=== PATIENT | female | born 1960 | race Caucasian/White ===

== ENCOUNTER 2025-02-22 15:00 | Emergency (ER) | payer OTHER, SELFPAY ==
--- OUTSIDE RECORDS SUMMARY | 2025-02-22 15:05 | XMS_ITS | Data Portability ---
Author Organization [facility] Address [address] [place] [address] Care Team Providers Care Wildlife Refuge Manager Name Role Phone KEENA HAMEED Primary Care Provider Unavailabl e Assessment No assessment recorded. Plan of Treatment Reminders Order Date Submit Date Provider Last Modified By Organization Details Last Modified Time Details Appointments ACUTE VISIT 2024 02:20P M WALK-IN Not available Not available Not available RECHECK 15 2024 10:15A M Keena Hameed MD Not available Not available Not available Lab CMP, serum or plasma 2023 024 [facility], [address] [facility], [address], [place], [address], 10/16/2023 13:54:49 CBC 2023 024 [facility], [address] [facility], [address], [place], [address], 10/16/2023 12:51:59 BRIAN + rf (antinucl ear antibodie s + rheumatoi d factor), quantitat russell, serum 2023 024 [facility], [address] [place] [address], [address] [facility] [address], 10/30/2023 07:35:35 C-reactiv e protein, quantitat russell, serum or plasma 2023 024 [facility], [address] [place] [address] 248, [address], [place], [address], 10/23/2023 19:36:10 ESR (erythroc yte sedimenta tion rate), blood 2023 024 [facility] ([facility]), [address] [place] [address], [phone], 10/17/2023 11:07:53 Referral None recorded. Procedures None recorded. Surgeries None recorded. Imaging XR, thoracic spine, 3 view 2023 024 [facility] ([facility]), [address] [place] [address], [phone], 04/13/2024 08:47:31 Medication Orders fluticaso ne propionat e 50 mcg/actua tion nasal spray,ten pension 2024 025 [facility], [address] [place] [address], [address], 10/07/2024 17:09:57 alprazola m 0.5 mg tablet 2024 025 [facility], [address] [place] [address], [address], 11/27/2024 13:09:40 Patient TargetsNo targets recorded. Patient InstructionsNo instructions recorded. Reason for Referral None Reported. Results Created Date Observation Date Name Description Value Unit Range Abnormal Flag Note LastModifiedBy Organization Detail LastModifiedTime 01/17/2001/16/2025 COLOG UARD cologuard result reportable Sample Could Not Be Proces sed n/a The Colog uard (TM) test was assig romi to this speci men. An empty colle ction kit was recei garrison in the labor atory . The patie nt will be conta cted to initi ate a new sampl e colle ction . Not Available [employer] [address], [place], [address], 01/16/2025 11:31:22 10/16/19 24 10/16/2023 CBC WBC 5.2 x10 4.0-10 .5 Not Available [facility] [address] [facility] [address], [place], [address], 10/16/2023 12:51:59 10/16/19 24 10/16/2023 CBC RBC 4.30 x10 3.50-5 .50 Not Available [facility] [address] [facility] 1, [place], [address], 10/16/2023 12:51:59 10/16/19 24 10/16/2023 CBC HGB 13.6 g/dL 12.0-1 6.0 Not Available [facility] [address] [facility] [address] [facility] [address], [place], [address], 10/16/2023 12:51:59 10/16/19 24 10/16/2023 CBC HCT 40.2 % 37.0-4 7.0 Not Available [facility] [address] [facility] [address] [facility] [address], [place], [address], 10/16/2023 12:51:59 10/16/19 24 10/16/2023 CBC MCV 93.6 fL 80.0-9 9.9 Not Available [facility] [address] [facility] [address] [facility] 1, [place], [address], 10/16/2023 12:51:59 10/16/19 24 10/16/2023 CBC MCH 31.5 pg 27.0-3 2.0 Not Available [facility] [address] [facility] [address] [address], [place], [address], 10/16/2023 12:51:59 10/16/19 24 10/16/2023 CBC MCHC 33.7 g/dL 32.0-3 6.0 Not Available [facility] [address] [facility] [address] [address], [place], [address], 10/16/2023 12:51:59 10/16/19 24 10/16/2023 CBC RDW 13.5 % 11.5-1 4.5 Not Available [facility] [address] [facility] [address] [facility], [place], [address], 10/16/2023 12:51:59 10/16/19 24 10/16/2023 CBC plt 316.8 x10 140.0- 451.0 Not Available [facility] [address] [facility] [address] [facility], [place], [address], 10/16/2023 12:51:59 10/16/19 24 10/16/2023 CBC lymphocytes % 40.8 % 20.0-5 0.0 Not Available [facility] [address] [facility] [address] [address], [place], [address], 10/16/2023 12:51:59 10/16/19 24 10/16/2023 CBC granulcytes % 51.6 % 30.0-7 0.0 Not Available [facility] [address] [facility] [address] [address], [place], [address], 10/16/2023 12:51:59 10/16/19 24 10/16/2023 CBC monocytes % 5.8 % 2.0-10 .0 Not Available [facility] [address] [place] [address] [facility], [place], [address], 10/16/2023 12:51:59 10/16/19 24 10/16/2023 CBC granulcytes# 2.7 x10 Not Anahy ilable [facility] [address] [place] [address] [facility], [place], [address], 10/16/2023 12:51:59 10/16/19 24 10/16/2023 CBC lymphocytes # 2.1 x10 Not Available [facility] [address] [facility], [place], [address], 10/16/2023 12:51:59 10/16/19 24 10/16/2023 CBC monocytes # 0.3 x10 Not Avai lable [facility] [address] [facility] [address] [facility] 1, [place], [address], 10/16/2023 12:51:59 10/16/19 24 10/16/2023 CMP (FEMA LE) glucose 101.0 mg/dL 60.0-9 9.0 high Not Available [facility] [address] [facility], [place], [address], 10/16/2023 13:54:49 10/16/19 24 10/16/2023 CMP (FEMA LE) BUN (blood urea nitrogen) 13.0 mg/dL 10.0-2 6.0 Not Available [facility] [address] [place] [facility], [place], [address], 10/16/2023 13:54:49 10/16/19 24 10/16/2023 CMP (FEMA LE) creatinine (serum) 0.7 mg/dL 0.4-1. 5 Not Available [facility] [address] [facility], [place], [address], 10/16/2023 13:54:49 10/16/19 24 10/16/2023 CMP (FEMA LE) BUN/creatini ne ratio 18.06 ratio Not Available [facility] [address] [facility], [place], [address], 10/16/2023 13:54:49 10/16/19 24 10/16/2023 CMP (FEMA LE) eGFR calculated 87.8 Not Available [facility] [address] [facility], [place], [address], 10/16/2023 13:54:49 10/16/19 24 10/16/2023 CMP (FEMA LE) total protein 8.0 g/dL 6.0-8. 5 Not Available [facility] [address] [facility], [place], [address], 10/16/2023 13:54:49 10/16/19 24 10/16/2023 CMP (FEMA LE) total bilirubin 0.8 mg/dL 0.2-1. 3 Not Available [facility] [address] [facility], [place], [address], 10/16/2023 13:54:49 10/16/19 24 10/16/2023 CMP (FEMA LE) albumin 4.3 g/dL 3.5-5. 5 Not Available [facility] [address] [facility] 1, [place], [address], 10/16/2023 13:54:49 10/16/19 24 10/16/2023 CMP (FEMA LE) globulin 3.7 calc Not Available [facility] [address] [facility], [place], [address], 10/16/2023 13:54:49 10/16/19 24 10/16/2023 CMP (FEMA LE) AST (SGOT) 25.0 U/L 0.0-46 .0 Not Available [facility] [address] [facility] 1, [place], [address], 10/16/2023 13:54:49 10/16/19 24 10/16/2023 CMP (FEMA LE) altv (SGPT) 19.0 U/L 13.0-6 9.0 normal Not Available [facility] [address] [facility], [place], [address], 10/16/2023 13:54:49 10/16/19 24 10/16/2023 CMP (FEMA LE) A/G ratio 1.2 ratio Not Available [facility] [address] [facility] [address], [place], [address], 10/16/2023 13:54:49 10/16/19 24 10/16/2023 CMP (FEMA LE) ALP phos 96.0 U/L 30.0-1 40.0 normal Not Available [facility] [address] [facility] [address], [place], [address], 10/16/2023 13:54:49 10/16/19 24 10/16/2023 CMP (FEMA LE) calcium 9.8 mg/dL 8.4-10 .5 Not Available [facility] [address] [facility] [address], [place], [address], 10/16/2023 13:54:49 10/16/19 24 10/16/2023 CMP (FEMA LE) sodium 140.0 mmol/ L 136.0- 145.0 Not Available [facility] [address] [facility] [address], [place], [address], 10/16/2023 13:54:49 10/16/19 24 10/16/2023 CMP (FEMA LE) potassium 4.2 mmol/ L 3.5-5. 1 Not Available [facility] [address] [facility] [address], [place], [address], 10/16/2023 13:54:49 10/16/19 24 10/16/2023 CMP (FEMA LE) chloride 105.0 mmol/ L 98.0-1 10.0 normal Not Available [facility] [address] [place] [facility], [place], [address], 10/16/2023 13:54:49 10/16/19 24 10/16/2023 CMP (FEMA LE) C02 31.0 mmol/ L 22.0-3 1.0 Not Available [facility] [address] [place] [address], [place], [address], 10/16/2023 13:54:49 10/16/19 24 10/16/2023 CMP (FEMA LE) anion gap 4.0 calc Not Available [facility] [address] [place] [address], [place], [address], 10/16/2023 13:54:49 10/16/19 24 10/16/2023 CMP (FEMA LE) osmolality 289.4 calc Not Available [facility] [address], [place], [address], 10/16/2023 13:54:49 10/16/19 24 10/23/2023 BRIAN,I FA, [place] AND RHEUM ATOID ARTHR ITIS PANEL 2, WITH REFLE XES BRIAN screen, ifa POSITI VE negati ve abnormal BRIAN IFA is a first line scree n for detec ting the prese nce of up to appro ximat myron 150 autoa ntibo dies in vario us autoi mmune disea ses. A posit russell BRIAN IFA resul t is sugge stive of autoi mmune disea se and refle xes to titer , pierre [place] and the 3 tiere d Multi plex 11 Antib hector [place]. Testi ng in the [place] stops at the first posit russell resul t, and does not precl ude addit ional posit russell resul ts. [facility] labor atory testi ng may be consi dered if clini nanette indic ated. For addit ional infor tomas styles e refer to http: //[facility] leonel allan.Que stDia gnost ics.c om/fa q/FAQ 177 (This link is being provi ded for infor roberto garner/ educa rupert l purpo ses only. ) Not Available [facility] [address], [place], [address], 10/23/2023 19:36:06 10/16/19 24 10/23/2023 BRIAN,I FA, [place] AND RHEUM ATOID ARTHR ITIS PANEL 2, WITH REFLE XES rheumatoid factor <10 IU/mL <14 normal Not Available [address] [place], [address], 10/23/2023 19:36:06 10/16/19 24 10/23/2023 BRIAN,I FA, CAS[place] AND RHEUM ATOID ARTHR ITIS PANEL 2, WITH REFLE XES cyclic citrullinate d peptide (ccp) Ab (IgG) <16 units normal Refer ence Range Negat russell: <20 Weak Posit russell: 20-39 Moder ate Posit russell: 40-59 Stron g Posit russell: >59 Not Available [address] [address] [place], [address], 10/23/2023 19:36:06 10/16/19 24 10/23/2023 BRIAN,I FA, CAS[place] DE AND RHEUM ATOID ARTHR ITIS PANEL 2, WITH REFLE XES mutated citrullinate d vimentin (MCV) Ab <20 U/mL <20 Anti- mutat ed citru llina catrachita vimen tin antib hector may be used as a secon d-kandi e timmye r of rheum atoid arthr itis, in addit ion to rheum atoid facto r and anti- cycli c citru llina catrachita pepti de (CCP) . Not Available [address] [address] [place], [address], 10/23/2023 19:36:06 10/16/19 24 10/23/2023 ANTIN UCLEA R ANTIB ODIES TITER AND PATTE RN BRIAN titer 1:80 titer high A low level BRIAN titer may be prese nt in pre-c linic al autoi mmune disea ses and airam l indiv idual s. Refer ence Range <1:40 Negat russell 1:40- 1:80 Low Antib hector Level >1:80 [place] catrachita Antib hector Level Not Available [address] [address] [place], [address], 10/23/2023 19:36:07 10/16/19 24 10/23/2023 ANTIN UCLEA R ANTIB ODIES TITER AND PATTE RN BRIAN pattern Cytopl asmic abnormal The prese nce of cytop lasmi c fluor escen ce was noted on the HEp-2 slide . Other react iviti es (e.g. , anti- mitoc hondr ial antib odies or anti- elías h muscl e antib odies ) may be respo nsibl e for this fluor escen ce. The clini shahram signi fican ce of this findi ng is [facility]. Clini shahram corre latio n is recom aries d. AC-15 to AC-23 : Cytop lasmi c Inter natio nal Conse nsus on BRIAN Patte rns (http s://d oi.or g/10. 1515/ [facility]- 2017- 0052) Not Available [address] [address] [place], [address], 10/23/2023 19:36:07 10/16/19 24 10/23/2023 TIER 1 DNA (ds) antibody <1 IU/mL normal IU/mL Inter preta tion < or = 4 Negat russell 5-9 Indet ermin ate > or = 10 Posit russell Not Available [address] [address] [place], [address], 10/23/2023 19:36:07 10/16/19 24 10/23/2023 TIER 1 sm antibody <1.0 NEG ai <1.0 neg normal Not Available [address] [address] [place], [address], 10/23/2023 19:36:07 10/16/19 24 10/23/2023 TIER 1 sm/urgent care technician antibody <1.0 NEG ai <1.0 neg normal Not Available [address] [address] [place], [address], 10/23/2023 19:36:07 10/16/19 24 10/23/2023 TIER 1 urgent care technician antibody <1.0 NEG ai <1.0 neg normal Not Available [address] [place], [address], 10/23/2023 19:36:07 10/16/19 24 10/23/2023 TIER 1 chromatin (nucleosomal ) antibody <1.0 NEG ai <1.0 neg normal Not Available [address] [address] [place], [address], 10/23/2023 19:36:07 10/16/19 24 10/23/2023 TIER 2 sjogren's antibody (ss-A) <1.0 NEG ai <1.0 neg normal Not Available [address], [address], 10/23/2023 19:36:08 10/16/19 24 10/23/2023 TIER 2 sjogren's antibody (ss-B) <1.0 NEG ai <1.0 neg normal Not Available [address] [address] [place], [address], 10/23/2023 19:36:08 10/16/19 24 10/23/2023 TIER 2 scl-70 antibody <1.0 NEG ai <1.0 neg normal Not Available [address] [address] [place], [address], 10/23/2023 19:36:08 10/16/19 24 10/23/2023 TIER 2 lizette-1 antibody <1.0 NEG ai <1.0 neg normal Not Available [address] [address] [place], [address], 10/23/2023 19:36:08 10/16/19 24 10/23/2023 TIER 3 centromere B antibody <1.0 NEG ai <1.0 neg normal Not Available [address] [address] [place], [address], 10/23/2023 19:36:09 10/16/19 24 10/23/2023 TIER 3 ribosomal P antibody <1.0 NEG ai <1.0 neg normal The [place] does not rule out autoi mmune disea se nuzhat cteri zed by other autoa ntibo dy speci ficit ies such as rheum atoid arthr itis, autoi mmune hepat itis, prima ry bilia ry cirrh osis, autoi mmune thyro iditi s, [place] on's disea se, perni cious anemi a, autoi mmune neuro pathi es, vascu litis , sandy c disea se and bullo us disea se. Pleas e conta ct your local [facility] at[facility] if you are inter ested in addit ional testi ng. Not Available [facility] [address] [address] [place], [address], 10/23/2023 19:36:09 10/16/19 24 10/23/2023 INTER PRETA TION interpretati on All three negat russell tiers indic ate the absen ce of detec table antib odies to compo nent vida pooja consi sting of doubl e stran ded DNA (dsDN A), chrom atin, ribon ucleo prote in (FORESTRY AID) , Martínez /FORESTRY AID (Sm/R BRAND COORDINATOR), Martínez (Sm), SS-A, SS-B, Lizette-1, Scl-7 0, centr omere B and ribos omal P. A negat russell resul t shoul d be inter prete d in the brittney xt of the clini shahram and labor atory findi ngs. Not Available [facility] [address] [address] [address] , [place], [address], 10/23/2023 19:36:09 10/16/19 24 10/23/2023 C-YUMIKO CTIVE PROTE IN C-reactive protein 5.5 mg/L <8.0 normal Not Available [facility] [address] [address] [place], [address], 10/23/2023 19:36:10 10/17/19 24 10/17/2023 ESR (eryt hrocy te sedim entat ion rate) , blood SedRate 21 Not Available [facility] [address] [place], [address], 10/16/2023 11:59:44 04/13/20 24 04/10/2024 XR, thora cic spine , 3 view No observ ation record ed. [email or web address] [facility] [address] [place], [address], 04/13/2024 14:53:00 Result Notes None recorded. Problems Name Problem SNOMED Code Status Onset Date Resolution Date Notes Provider Name and Address Organization Details Recorded Time Irritabl e bowel syndrome 61813709 Active 2022 IBS; 06/18/19 8:56AM by Kaya Nolan, Office Visit; Promoted ; acuity set as *; JESUS hannon [facility] 5 16:51:20 Urticari a 049038863 Active 2022 Urticari a; 06/18/19 23 8:56AM by Kaya Nolan, Office Visit; Promoted ; acuity set as *; [facility]US hannon [facility] 5 16:51:20 Bacteria l intestin al infectio us disease 648762636 Completed 202209/30/2024 Helicoba cter Pylori Infectio n; 2006.; 06/18/19 23 8:56AM by Kaya Nolan, Office Visit; Promoted ; acuity set as *; [facility] hannon [facility] 5 16:51:30 Generali zed anxiety disorder 92103232 Active [address] [facility] 5 16:51:20 Thoracic back pain 441888800 Active [address] [facility] 5 16:51:20 Chronic osteoart hritis 22782103 Active 2023 JESUS hannon, [facility] 5 16:51:20 Pain of multiple joints 66563617 Active 2023 JESUS hannon, [facility] 5 16:51:20 Compress ion fracture of thoracic vertebra 82637962836 04 Completed 202309/30/2024 JESUS hannon, [facility] 5 16:51:30 Allergic rhinitis 17670214 Active 2024 Keena Hameed MD [address] [place] [address], [address], [facility] 17:14:27 Problem Notes None recorded. Medical Equipment None Reported. Allergies Allergen ID Allergen Name Allergen Category Reaction Reaction Severity Criticality Documentation Date Start Date Code Code System Note Provider Name and Address Organization Details Recorded Time 86989 cyclobenz aprine hydrochlo ride medicatio n Not available Not available Not available 12/15/2022 89118 RxNorm Comme nt: Recor ded 06/18 8:56A M by Brand edin Sageri s, Offic e Visit ; Promo catrachita; Signi ficoxana ce: *; ; [facility] 4 11:36:48 85646 escitalop [place] Not available Not available Not available Not available 12/15/2022 03956 8 RxNorm Comme nt: Recor ded 06/18 8:56A M by Brand i Norri s, Offic e Visit ; Promo catrachita; Signi ficoxana ce: *; ; [facility]ESUS hannon [facility] 4 11:36:49 70208 acetamino phen / oxycodone medicatio n Not available Not available Not available 12/15/2022 33282 3 RxNorm Comme nt: Recor ded 06/18 8:56A M by Mickey Mchugh s, Offic e Visit ; Elba domínguez; Ubaldo valenzuela ce: *; ; [facility] 4 11:36:50 Medications Name Sig Start Date Stop Date Status Note LastModified by Organization Details LastModified Time cetirizin e 5 mg-pseudo ephedrine ER 120 mg tablet,ex tended release,1 2hr TAKE ONE TABLET BY MOUTH TWICE DAILY NEEDED 2024 active Not Available Not Available Not Avai lable celecoxib 200 mg capsule take 1 capsule BY MOUTH EVERY DAY FOR arthriti s. STOP ibuprofe n 10/15 completed Not Available Not Available Not Available methocarb estefanía 500 mg tablet TAKE 1 TABLET BY MOUTH FOUR TIMES DAILY NEEDED 10/15 completed Not Available Not Available Not Available ibuprofen 800 mg tablet TAKE 1 TABLET BY MOUTH TWO TIMES DAILY NEEDED FOR PAIN active Not Available Not Available No t Available fluconazo le 150 mg tablet TAKE 1 TABLET BY MOUTH DAILY 10/15 completed Not Available Not Available Not Available fluoroura cil 5 % topical cream apply thin layer TO concerni ng lesions TWICE DAILY FOR 14 DAYS 03/26 completed Not Available Not Available Not Available sulfameth oxazole 800 mg-trimet hoprim 160 mg tablet TAKE ONE TABLET BY MOUTH TWICE DAILY 03/26 completed Not Available Not Available Not Available alprazola m 0.5 mg tablet TAKE 1 TABLET BY MOUTH THREE TIMES DAILY NEEDED *MUST LAST 30 DAYS* 2024 active Not Available Not Available Not Avai lable estradiol 1 mg tablet TAKE 1 TABLET BY MOUTH EVERY DAY 2024 active Not Available Not Available Not Avai lable omeprazol e 20 mg capsule,d elayed release TAKE 1 CAPSULE BY MOUTH EVERY DAY active Not Available Not Available No t Available levofloxa ruiz 500 mg tablet TAKE 1 TABLET BY MOUTH every 24 hours FOR uti for 7 days 10/15 completed Not Available Not Available Not Available fluticaso ne propionat e 50 mcg/actua tion nasal spray,ten pension [place] 2 sprays every day by intranas al route. 2024 active Not Available Not Available Not Avai lable neomycin 3.5 mg/g-poly myxin B 10,000 unit/g-de xameth 0.1 % eye oint apply a small amount ON eyelid THREE TIMES DAILY. start DAY of procedur e and continue FOR TWO weeks 03/26 completed Not Available Not Available Not Available neomycin- polymyxin -hydrocor t 3.5 mg-10,000 unit/mL-1 % ear drops,ten p adminsit er TWO drops into THE right ear canal THREE TIMES DAILY FOR SEVEN DAYS 08/02 completed Not Available Not Available Not Available nitrofura ntoin monohydra te/macroc rystals 100 mg capsule TAKE 1 CAPSULE BY MOUTH EVERY 12 HOURS FOR 5 DAYS 08/12 completed Not Available Not Available Not Available tizanidin e 2 mg capsule two times daily, as needed 03/26 completed Recorded 02/15/20 22 10:01AM by Pastora Starr LPN, Office Visit; Refill Quantity : 40; Capsule; Not Available Not Available Not Available hydroxyzi ne HCl Q 4 hr prn hives 09/30 completed Recorded 02/15/20 22 10:01AM by Pastora Starr LPN, Office Visit; Refill Quantity : 60; Tablet; Not Available Not Available Not Available fluconazo le once for yeast infectio n 03/26 completed Recorded 06/18/19 23 9:36AM by Keena Hameed MD, Office Visit; Refill Quantity : 1; Tablet; Not Available Not Available Not Available furosemid e as needed 03/26 completed Recorded 02/15/20 22 10:01AM by Pastora Starr LPN, Office Visit; Refill Quantity : 20; Tablet; Not Available Not Available Not Available alprazola m three times daily, as needed 03/26 completed each RX must last 30 days.; Recorded 05/14/20 22 10:07AM by Keena Hameed MD, Refill Request; Refill Quantity : 90; Tablet; Not Available Not Available Not Available cetirizin e-pseudoe phedrine two times daily, as needed 03/26 completed Recorded 06/29/19 4:35PM by Rome Malone MD, Refill Request; Refill Quantity : 40; Tablet; Not Available Not Available Not Available Vitals Date Recorded Body height Body mass index (BMI) Body weight Heart rate Systolic And Diastolic Provider Name and Address Organization Details Last Updated DateTime 09/30/2024 168.91 cm 24.2 kg/m2 18882.04 g 64 /min 118/63 mm[Hg] [facility]US [facility] 5 16:56:13 Date Recorded Body height Body mass index (BMI) Body weight Heart rate Systolic And Diastolic Provider Name and Address Organization Details Last Updated DateTime 10/16/2023 168.91 cm 24.2 kg/m2 07709.04 g 68 /min 100/60 mm[Hg] JESUS [facility] 4 11:34:46 Date Recorded Body mass index (BMI) Body weight Oxygen saturation Oxygen saturation in Arterial blood by Pulse oximetry Heart rate Respiratory rate Body temperature Systolic And Diastolic Provider Name and Address Organization Details Last Updated DateTime 5 24.6 kg/m2 34868.8 2 g 97 % 97 % 76 /min 18 /min 97 [degF] 122/70 mm[Hg] PASTORA STARR [facility] 13:45:43 Date Recorded Body height Provider Name an d Address Organization Details Last Updated DateTime 10/28/[address]24 [address] [facility] [facility] 10/28/2024 13:41:33 Date Recorded Body height Body mass index (BMI) Body weight Body temperature Oxygen saturation Oxygen saturation in Arterial blood by Pulse oximetry Heart rate Systolic And Diastolic Provider Name and Address Organization Details Last Updated DateTime 168.91 cm 24.6 kg/m2 11359.8 2 g 97.9 [degF] 94 % 94 % 69 /min 180/88 mm[Hg] Carmen Aceves [facility] 5 15:38:53 Date Recorded Body height Body mass index (BMI) Body weight Oxygen saturation Oxygen saturation in Arterial blood by Pulse oximetry Heart rate Systolic And Diastolic Provider Name and Address Organization Details Last Updated DateTime 4 168.91 cm 23.8 kg/m2 17226.8 6 g 97 % 97 % 67 /min 116/70 mm[Hg] KAYA NOLAN [facility] L.LFadi[facility] 4 14:50:33 Social History Question Answer Notes LastModified by Organizat ion Details LastModified Time Tobacco Smoking Status Former Smoker JESUS BETHEA riddhi [facility] 03/26/2023 11:41:15 What Was The Date Of Your Most Recent Tobacco Screening? 02/22/2025 [email or web address] Information not available 02/22/2025 Sex: Unknown Functional Status Question Answer Note LastModified by Organization D etails LastModified Time What is your level of alcohol consumption? None [email or web address] Information not available 03/26/2023 Mental Status None recorded. Family History Relationship Description Onset Age of this Age Resolved Age Notes LastModified by Organization Details LastModified Time Mother Diabetes mellitus [email or web address] Not available 10/15 11:38:17 Medical History No medical history recorded. Gynecological HistoryNo gynecological history recorded. Obstetrics History GPAL:G 0 P 0 0 0 0 Immunizations Vaccine Type Date Status Note Provider Nam e and Address Organization Details Recorded Time Tdap 10/22/2007 completed Not Available [employer] 12/15/2022 02:38:59 Tdap 04/05/2023 completed JILL DOWNEY PA-C [address] [place] [address], [phone], [facility], L.LFadiCFadi 04/05/2023 17:17:28 Past Encounters Encounter ID Performer Location Encounter Start Date Encounter Closed Date Diagnosis/Indication Diagnosis SNOMED-CT Code Diagnosis ICD10 Code Diagnosis IMO Codes Diagnosis Note [id number] Keena Hameed MD [facility] ([facility]) [address] [place] [address] 03/26/2023 11:02:08 03/26/2023 15:32:09 Irritable bowel syndrome 50452591 K58.9 stable at this time Generalize d anxiety disorder 56821895 F41.1 stable. Active or passive immunization 613305575 Z23 Adult heal th examination 927089638 Z00.00 Thoracic back pain 61545 8004 M54.6 [id number] JILL DOWNEY PA-C [facility] ([facility]) [address] [place] [phone] 04/05/2023 10:25:47 04/05/2023 18:41:52 Pain of left hand 1230952040 41226 M79.642 no fx seen.able to return to work. Laceration of finger of left hand 8778641838 0438282 S61.227A see exam. watch for infection. Clean daily and keep covered. [id number] MARA MEDINA [facility] ([facility]) [address] [place] [phone] 08/03/2023 13:56:15 08/03/2023 15:12:05 Acute urinary tract infection 177536611 N39.0 [id number] Keena Hameed MD [facility] ([facility]) [address] [place] [phone] 08/13/2023 11:44:22 08/13/2023 17:40:05 Dysuria 40188764 R30.0 Chronic osteoarthritis 22319372 M19.90 [id number] Keena Hameed MD [facility] ([facility]) [address] [place] [phone] 10/16/2023 10:41:26 10/16/2023 13:05:41 Generalized anxiety disorder 14810295 F41.1 stable. Irritable bowel syndrome 04361411 K58.9 stable at this time Thoracic back pain 99238 8004 M54.6 stable Pain of mu ltiple joints 95302166 M25.50 Adult heal th examination 940315237 Z00.00 [id number] Keena Hameed MD [facility] ([facility]) [address] [place] [phone] 04/10/2024 14:39:14 04/10/2024 15:51:18 Urticaria 865390622 L50.9 Pain of mu ltiple joints 66171000 M25.50 Rheumatolo gist appt. in April in April. Compressio n fracture of thoracic vertebra 8539359976 104 M48.54XD history of T8 compressio n fracture with continued pain. [id number] Keena Hameed MD [facility] ([facility]) [address] [place] [phone] 09/30/2024 15:53:13 10/03/2024 06:55:51 Urticaria 309194133 L50.9 Generalize d anxiety disorder 82144619 F41.1 stable. Thoracic back pain 66523 8004 M54.6 stable Pain of mu ltiple joints 38236172 M25.50 stable, Rheumatolo gist felt false positive BRIAN Allergic rhinitis 639562 04 J30.9 1794148 [id number] JILL DOWNEY PA-C [facility] ([facility]) [address] [place] [phone] 10/28/2024 13:39:14 10/28/2024 15:22:06 Insect sting 362059960 T63.481A W57.XXXA 12716405 no evidence of infection. large amnt of bruising associated with in.Low suspicion of DVT. Varicose v eins of lower extremity 15328164 I83.666 1420689 mild edema L>R [id number] MARA MEDINA [facility] ([facility]) [address] [place] [phone] 02/22/2025 15:28:39 02/22/2025 16:05:03 Epigastric pain 40894249 R10.13 [id number] Sent to ER for further evaluation and treatment. Report to ER staff Violette by Carmen MEJÍA. Patient wishes to go to ER per private vehicle. Health Concerns Section Related Observation LastModified by Organization Detai ls LastModified Time None Recorded Concern Status LastModified by Organization Details LastModified Time None Recorded Advance Directives Directive None Recorded Payers Insurance Date Sequence Insurance Name Policy Number Policy Duran Covered Member ID Duran Member ID Guarantor Name 04/10/2024 JUAN R BECK [id number] Betzy Breen 10/28/2024 1 MADINA [id number] Betzy Breen [id number] 1 Betzy Breen Notes Date Note Type Note Provider Name and Address Organization Details Recorded Time 04/10/2024 text/html Generalized Anxi ety DisorderReported by PatientHPIFor associated symptoms, patient reportsdifficulty controlling worryandexcess anxietybut reportsno difficulty concentrating,no chest pain, andno tachycardia. For severity, patient reportsmild. Would like to discuss her itching. If she does not take her allergy medication for a few days then she starts itching all over. Would like to discuss. When she wakes up she has phlegm in the roof of her mouth. Also, continued mid thoracic back pain with a history of compression fracture by at least 2016. Keena Hameed MD [address] [place] [address], [phone], [facility] 05/25/2024 18:25:09 10/28/2024 text/html Skin LesionRepor catrachita by PatientHPIFor location, patient reportsleg. For quality, patient reportsitchy. For severity, patient reportsmoderate. For duration, patient reports3 days. For timing, patient reportsabruptandconsta nt. got insect bite on back of right knee and it instantly swelled up and bruised, worried becasue brother had blood clots. JILL DOWNEY PA-C [address] [place], [address], [facility] 10/28/2024 14:09:41 02/22/2025 text/html ROS as noted in the HPI walk inIncreasing chest pain, epi-gastric hurting through to back with band radiation to back, fatigue and nausea. Patient states that she took omeprazole this AM and also tums about an hour ago with no relief. Denies shortness of breath. MARA MEDINA [address] [place] [address], [phone], [facility] 02/22/2025 15:57:03 OBGyn Episode No OBEpisode recorded.
--- OUTSIDE RECORDS SUMMARY | 2025-02-22 15:05 | XMS_ITS | Clinical Summary ---
Author Organization [facility] Mauricio Caicedoaway Address [address] [place] [address] Phone Care Team Providers Care Lacquer Shader Name Role Phone Unavailable Primary Care Provider Unavailabl e Medications estradioL 0.025 mg/24 hr patch Apply 1 Patch to skin as directed twice weekly. Active omeprazole (PriLOSEC) 20 mg Capsule, Delayed Release(E.C.) Take 20 mg by mouth daily. Active ALPRAZolam (XANAX) 0.5 mg tablet Take 0.5 mg by mouth nightly as needed for Anxiety. Active CALCIUM ACETATE,PHOSPHA T BIND, ORAL Take by mouth. Active MAGNESIUM CITRATE ORAL Take by mouth. Active ZINC GLUCONATE ORAL Take by mouth. Active Active Problems No known active problems Encounters Date Type Department Care Team Description 12/22/2024 External Device Data STL ABSTRACTION Provider, Abstract from Last 3 Months Social History Tobacco Use Types Packs/Day Years Used Date Smoking Tobacco: Some Days Cigarettes Tobacco Cessation:Ready to Q uit: Not Asked; Counseling Given: Not Answered Comments Unknown Sex and Gender Information Value Date Recorded Sex Assigned at Not on file Legal Sex Female 11:57 AM CDT Gender Identity Not on file Sexual Orientation Not on file Last Filed Vital Signs Vital Sign Reading Time Taken Comments Blood Pressure 120/72 05/07/2024 10:01 AM UNDERGROUND ROOF BOLTER Pulse 70 05/07/2024 10:01 AM UNDERGROUND ROOF BOLTER Temperature - - Respiratory Rate - - Oxygen Saturation 98% 05/07/2024 10:01 AM UNDERGROUND ROOF BOLTER Inhaled Oxygen Concentration - - Weight 67.1 kg (148 lb) 05/07/2024 10:01 AM UNDERGROUND ROOF BOLTER Height 172.7 cm (5' 8 ) 05/07/2024 10:01 AM UNDERGROUND ROOF BOLTER Body Mass Index 22.5 05/07/2024 10:01 AM UNDERGROUND ROOF BOLTER Plan of Treatment Health Maintenance Due Date Last Done Comments DTAP/TDAP/TD VACCINES (1 - Tdap) 1981 HPV/Cotest (21-29) 12/30/1983 CERVICAL CANCER SCREENING 1992 HPV/Cotest (30-65) 1992 PAP SMEAR 1992 BREAST CANCER SCREENING 2002 COLORECTAL SCREENING 12/30/2007 Colorectal Cancer Screening 12/30/2007 FIT-DNA Q 3 years 12/30/2007 FIT/FOBT Q 1 year 12/30/2007 Flex Sig/CT Colonography Q 5 years 12/30/2007 ZOSTER VACCINE (1 of 2) 2012 INFLUENZA VACCINE (#1) 2024 RSV VACCINE (60+ or ) (1 - 1-dose 75+ series) [address] [place] [address] OPEN ACCESS O
--- OUTSIDE RECORDS SUMMARY | 2025-02-22 15:06 | XMS_ITS | Continuity of Care Document ---
Author Organization [facility] [place], LPhillip, [facility] ([facility]) Address [address] [place] [address] Care Team Providers Care Steam Conditioning Operator Name Role Phone KEENA HAMEED Primary Care Provider Unavailabl e Assessment No assessment recorded. Plan of Treatment Reminders Order Date Submit Date Provider Last Modified By Organization Details Last Modified Time Details Appointments ACUTE VISIT 2024 02:20P M WALK-IN Not available Not available Not available RECHECK 15 2024 10:15A M Keena Hameed MD Not available Not available Not available Lab None recorded . Referral None recorded . Procedures None recorded . Surgeries None recorded . Imaging None recorded . Medication Orders None recorded . Patient TargetsNo targets recorded. Patient InstructionsNo instructions recorded. Reason for Referral None Reported. Problems Name Problem SNOMED Code Status Onset Date Resolution Date Notes Provider Name and Address Organization Details Recorded Time Irritabl e bowel syndrome 48246739 Active 2022 IBS; 06/18/19 8:56AM by Yesika Larose, Office Visit; Promoted ; acuity set as *; JESUS hannon [facility], L.L.CFadi 16:51:20 Urticari a 082710449 Active 2022 Urticari a; 06/18/19 23 8:56AM by Yesika Larose, Office Visit; Promoted ; acuity set as *; JESUS hannon [facility] 16:51:20 Bacteria l intestin al infectio us disease 097370812 Completed 202209/30/2024 Helicoba cter Pylori Infectio n; 2006.; 06/18/19 8:56AM by Yesika Larose, Office Visit; Promoted ; acuity set as *; [facility] 16:51:30 Generali zed anxiety disorder 61022577 Active 2022 [facility] 5 16:51:20 Thoracic back pain 620520423 Active 2022 [facility] 5 16:51:20 Chronic osteoart hritis 96768839 Active 2023 [facility] 5 16:51:20 Pain of multiple joints 93819184 Active 2023 [facility] 5 16:51:20 Compress ion fracture of thoracic vertebra 69819131504 04 Completed 202309/30/2024 [facility] 5 16:51:30 Allergic rhinitis 01891784 Active 2024 Keena Hameed MD [address] [place] [address], [phone] [facility] [address] 17:14:27 Problem Notes None recorded. Medical Equipment None Reported. Allergies Allergen ID Allergen Name Allergen Category Reaction Reaction Severity Criticality Documentation Date Start Date Code Code System Note Provider Name and Address Organization Details Recorded Time 18459 cyclobenz aprine hydrochlo ride medicatio n Not available Not available Not available 12/15/2022 74789 RxNorm Comme nt: Recor ded 06/18 8:56A M by Mickey Mchugh s, Offic e Visit ; Promo catrachita; Ubaldo valenzuela ce: *; ; JESUS hannon [facility] 4 11:36:48 [address]702 escitalop [place] Not available Not available Not available Not available 12/15/2022 75149 8 RxNorm Comme nt: Recor ded 06/18 8:56A M by Mickey Mchugh s, Offic e Visit ; Promo catrachita; Ubaldo valenzuela ce: *; ; JESUS BETHEA riddhi, [facility] 4 11:36:49 91068 acetamino phen / oxycodone medicatio n Not available Not available Not available 12/15/2022 53607 3 RxNorm Comme nt: Recor ded 06/18 8:56A M by Brand edin Mchugh s, Offic e Visit ; Promo catrachita; Ubaldo valenzuela ce: *; ; JESUS BETHEA riddhi, [facility] 4 11:36:50 Medications Name Sig Start Date [...] TIMES DAILY NEEDED *MUST LAST 30 DAYS* 08/05/ 2025 active Not Available Not Available Not Avai [...] e 50 mcg/actua tion nasal spray,ten pension [place] 2 sprays every day by intranas al [...] completed Recorded 02/15/20 22 10:01AM by Pastora Russell LPN, Office Visit; Refill Quantity : 40; Capsule; Not Available Not Available Not Available hydroxyzi ne HCl Q 4 hr prn hives 09/30 completed Recorded 02/15/20 22 10:01AM by Pastora Russell LPN, Office Visit; Refill Quantity : 60; Tablet; Not Available Not Available Not Available fluconazo le once for yeast infectio n 03/26 completed Recorded 06/18/19 23 9:36AM by Keena Hameed MD, Office Visit; Refill Quantity : 1; Tablet; Not Available Not Available Not Available furosemid e as needed 03/26 completed Recorded 02/15/20 22 10:01AM by Pastora Russell LPN, Office Visit; Refill Quantity : 20; Tablet; Not Available Not Available Not Available alprazola m three times daily, as needed 03/26 completed each RX must last 30 days.; Recorded 05/14/20 22 10:07AM by Keena Hameed MD, Refill Request; Refill Quantity : 90; Tablet; Not Available Not Available Not Available cetirizin e-pseudoe phedrine two times daily, as needed 03/26 completed Recorded 06/29/19 23 4:35PM by Rome Malone MD, Refill Request; Refill Quantity : 40; Tablet; Not Available Not Available Not Available Vitals Date Recorded Body height Body mass index (BMI) Body weight Body temperature Oxygen saturation Oxygen saturation in Arterial blood by Pulse oximetry Heart rate Systolic And Diastolic Provider Name and Address Organization Details Last Updated DateTime 168.91 cm 24.6 kg/m2 14399.8 2 g 97.9 [degF] 94 % 94 % 69 /min 180/88 mm[Hg] Carmen Ketan [facility] 15:38:53 Social History Question Answer Notes LastModified by Organizat ion Details LastModified Time Tobacco Smoking Status Former Smoker JESUS hannon [facility] 03/26/2023 11:41:15 What Was The Date Of [...] 02:38:59 Tdap 04/05/2023 completed JILL DOWNEY PA-C [address] [place], [address], [facility] 04/05/2023 17:17:28 Past Encounters Encounter ID Performer Location Encounter Start Date Encounter Closed Date Diagnosis/Indication Diagnosis SNOMED-CT Code Diagnosis ICD10 Code Diagnosis IMO Codes Diagnosis Note [id number] MARA MEDINA [facility] ([facility]) [address] [place] [address] 02/22/2025 15:28:39 02/22/2025 16:05:03 Epigastric pain 88022825 R10.13 09338 Sent to ER for further evaluation and treatment. Report to ER staff Violette by Carmen MEJÍA. Patient wishes to go to ER per private vehicle. Health Concerns Section Related Observation LastModified by Organization Detai ls LastModified Time None Recorded Concern Status LastModified by Organization Details LastModified Time None Recorded Payers Encounter Date Sequence Insurance Name Policy Number Policy Duran Covered Member ID Duran Member ID Guarantor Name 02/22/2025 1 MADINA [id number] Betzy Breen [id number] Betzy Breen Notes Date Note Type Note Provider Name and Address Organization Details Recorded Time 02/22/2025 text/html ROS as noted in the HPI walk inIncreasing chest pain, epi-gastric hurting through to back with band radiation to back, fatigue and nausea. Patient states that she took omeprazole this AM and also tums about an hour ago with no relief. Denies shortness of breath. MARA MEDINA [address] [place], [address], [facility] 02/22/2025 15:57:03 OBGyn Episode No OBEpisode recorded.
[2025-02-22 15:07] VITALS: BP 149/70; PULSE 71; RESP 18; TEMP 36.6; O2SAT 99
--- NOTE | 2025-02-22 15:15 | ECG_ITS ---
[facility] Date: 2025-02-22 Pat Name: Betzy Breen Department: Room: Gender: Female Electronic Communications Technician: : 1960 Requested By: Fab Buitrago Order Number: [id number] Berry MD: Era Hoskins M.D. Measurements Intervals [place] Rate: 67 P: 59 FL: 137 QRS: 47 QRSD: 72 T: 54 QT: 412 QTc: 437 Interpretive Statements SINUS RHYTHM No previous ECG available for comparison Electronically Signed On 02-22-2025 23:25:28 CDT by Era Hoskins M.D. [email or web address]
--- NOTE | 2025-02-22 15:23 | XR_ITS ---
WS: [id number] Portable AP upright chest, 02/22/2025 Clinical Data: epigastric pain Comparison: Two-view chest, 09/23/2017 Findings: No nodules, masses or effusions are seen. The heart is normal. The pulmonary vascularity is not increased. No pneumonia or pneumothorax is seen. The diaphragms are flattened. XR/XR chest 1V portable [id number] Impression: Hyperinflation.
[2025-02-22 16:33] LABS: Hematocrit 39.6 % (36-47); Hemoglobin 12.50 g/dL (11.27-16.99); Mean Corpuscular HGB Conc 31.6 g/dL (30-55); Mean Corpuscular Hemoglobin 30.3 pg (27-33); Mean Corpuscular Volume 95.9 fl (85-98); Nucleated Red Blood Cells % 0 %; Platelet Count 275 10^3/cmm (157-399); Red Blood Count 4.13 10^6/uL (3.85-5.65); White Blood Count 5.96 10^3/uL (3.29-11.43)
[2025-02-22 16:56] LABS: Alanine Aminotransferase 9 U/L (0-33); Albumin Level 4.1 g/dL (3.5-5.2); Alkaline Phosphatase 102 U/L (35-105); Anion Gap 13.9 (5-19); Aspartate Amino Transferase 11 U/L (0-32); Blood Urea Nitrogen 9 mg/dL (8-23); Calcium 9.3 mg/dL (8.5-10.5); Carbon Dioxide 27 mmol/L (22-29); Chloride 102 mmol/L (98-107); Creatinine Clr Calc Pharmacy 76.5015; Globulin 3.3 g/dL (1.3-4.6); Glucose 110 mg/dL (65-115); Lipase 24 U/L (13-60); Osmolality Calculated 287 mOsm/kg (285-295); Potassium 3.9 mmol/L (3.5-5.1); Sodium 139 mmol/L (136-145); Total Protein 7.4 g/dL (6.6-8.7)
[2025-02-22 16:59] LABS: Troponin(5th) Baseline < 6 ng/L (0-10)
--- NOTE | 2025-02-22 17:03 | ECG_ITS ---
[facility]: 2025-02-22 Pat Name: Betzy Breen Department: Room: Gender: Female Oracle Drm Consultant: : 1960 Requested By: Fab Buitrago Order Number: [id number] Berry MD: Era Hoskins M.D. Measurements Intervals [place] Rate: 61 P: 55 KS: 134 QRS: 46 QRSD: 74 T: 53 QT: 412 QTc: 416 Interpretive Statements SINUS RHYTHM Compared to ECG 02/22/2025 15:15:18 No significant changes Electronically Signed On 02-22-2025 23:29:33 CDT by Era Hoskins M.D. [email or web address]
--- NOTE | 2025-02-22 17:14 | W.ED.CHESTPA ---
HPI - Chest Pain General: Chief Complaint: Chest Pain Stated Complaint: high blood pressure n/v adb pain Time Seen by Provider: 02/22/25 16:12 Source: patient Mode of arrival: ambulatory Limitations: no limitations History of Present Illness: Patient is a 64-year-old female with no pertinent past medical history reporting to the emergency department complaining of upper abdominal pain beginning this morning. States that she woke up at around 0400 and noticed the pain which she states radiates into her back and down bilateral flanks. Denies any pertinent cardiac history, no history of heart attacks or strokes states that the pain has been constant since. States she does have a history of acid reflux and has taken omeprazole as well as Tums that did not help her pain at all. Also is reporting nausea, no vomiting. No diarrhea or constipation, no black or tarry stools. No blood in her stools. She is not endorsing any dysuria or hematuria, no vaginal bleeding. No fever, dizziness or lightheadedness, headache, syncopal episodes, chest pain, or shortness of breath. States that she has also taken ibuprofen but has continued to have pain. No hematemesis or coffee-ground emesis. States that she is concerned about her gallbladder, she did arrive with elevated blood pressure 180/84. Current blood pressure 149/70 at bedside, afebrile and rest of her vitals unremarkable. She is nontoxic-appearing. No surgical history of her abdomen. MD complaint: other (upper abd pain) Onset (ago): hour(s) Timing of current episode: constant Prior episodes: No Onset: awoke with symptoms Pain radiation: back Severity: moderate Quality: tightness Relieving factors: nothing Associated symptoms: Reports abdominal pain and nausea; Deny diaphoresis, dyspnea, fever(s), palpitations, syncope or vomiting Treatment prior to arrival: other (Antacids, ibuprofen) Related Data Home Medications ?Medication ?Instructions ?Recorded ?Confirmed alprazolam 0.5 mg tablet mg PO 01/08/24 01/08/24 cetirizine 5 mg-pseudoephedrine ER tab PO 01/08/24 01/08/24 120 mg tablet,extended release,12hr estradiol 1 mg tablet mg PO 01/08/24 01/08/24 ibuprofen 800 mg tablet mg PO 01/08/24 01/08/24 omeprazole 20 mg capsule,delayed mg PO 01/08/24 01/08/24 release Previous Rx's ?Medication ?Instructions ?Recorded ondansetron 4 mg disintegrating 4 mg PO TID PRN nausea and 02/22/25 tablet vomiting #30 tabs Allergies Allergy/AdvReac Type Severity Reaction Status Date / Time pain medication Allergy ADR-Itching Uncoded 02/22/25 15:21 Review of Systems General: Reports: 10 or more systems reviewed and unremarkable except in HPI and below Const: Denies: fever(s), chills, change in appetite, change in weight or diaphoresis ENMT: Denies: throat pain or hoarseness Card: Denies: chest pain, palpitations, lightheadedness or syncope Resp: Denies: dyspnea, productive cough or wheezing GI: Reports: abdominal pain and nausea; Denies: vomiting, hematemesis, coffee ground emesis, heartburn, diarrhea, bloating, change in stool character, hematochezia or melena : Reports: flank pain; Denies: difficulty voiding, dysuria, urinary frequency or urinary urgency Musc: Reports: back pain; Denies: neck pain Skin/Breast: Denies: rash or new lesions Neuro: Denies: headache(s) or dizziness PFSH ED PFSH: Social History Smoking and tobacco/nicotine status: former use of tobacco/nicotine Physical Exam Const: COMMON NORMALS: no acute distress, average body habitus, patient oriented x3, no limitations, healthy appearing, alert and well nourished GENERAL APPEARANCE: cooperative and comfortable ORIENTATION/CONSCIOUSNESS: Yes awake OTHER: nontoxic Neck/C-Spine: COMMON NORMALS: full ROM, supple and no meningeal signs Resp: COMMON NORMALS: normal respiratory effort, No retractions, No use of accessory muscles and clear to auscultation bilaterally AUSCULTATION: clear to auscultation bilaterally, no crackles, no rales, no rhonchi and no wheezes Cardio: COMMON NORMALS: regular rate, regular rhythm, No gallops present (Cardio), No clicks present (Cardio), No murmurs present (Cardio), No rub (Cardio) and Peripheral pulses 2+ throughout RATE: regular rate RHYTHM: regular rhythm PERIPHERAL PULSES: Peripheral pulses 2+ throughout GI: COMMON NORMALS: Normal to inspection, nondistended, normoactive bowel sounds present, Soft to palpation, No hepatosplenomegaly present and no masses AUSCULTATION: Yes normoactive bowel sounds PALPATION: Yes Soft to palpation, Yes Tenderness to palpation present (GI) Details: LUQ and RUQ, No Guarding due to palpation present (GI), No Rigid due to palpation and Yes No hepatosplenomegaly present RECTAL EXAM: deferred Extremity: COMMON NORMALS: normal to inspection and full ROM Neuro: COMMON NORMALS: patient oriented x3, moves all extremities, no focal motor deficits and no sensory deficits noted SENSORIUM/ORIENTATION: Yes alert MENINGEAL SIGNS: Yes no meningeal signs Psych: COMMON NORMALS: mental status grossly normal, cooperative and speech normal SPEECH: Yes normal speech Skin: COMMON NORMALS: no rashes or lesions noted GENERAL SKIN EXAM: no rashes or lesions noted Course Vital Signs: Vital signs: Vital Signs Temperature 97.9 F 02/22/25 15:07 Pulse Rate 71 02/22/25 15:07 Respiratory Rate 18 02/22/25 15:07 Blood Pressure 139/54 02/22/25 17:41 Pulse Oximetry 100 02/22/25 17:41 Oxygen Delivery Me thod Room Air 02/22/25 17:41 MDM - Chest Pain Medical Decision Making Patient presenting for upper abdominal pain began this morning. She does not report any pertinent past medical history. No cardiac history specifically, no heart attacks or strokes. Reproducible upper abdominal tenderness to palpation on exam, though she is nontoxic-appearing and in no acute distress. Vitals have remained stable throughout ED course. No vomiting, she was given a GI cocktail and this made her spit up afterwards but she states that this did improve her symptoms. Her troponin was negative, urinalysis clean, rest of her lab work normal. EKG showing normal sinus rhythm with no acute ST segment changes, this was reviewed with physician. Chest x-ray also unremarkable. CT abdomen and pelvis does not show any acute findings, there is single gallstone but no signs of cholecystitis so this is likely not to explain her symptoms. There is some mild colitis, of which patient notes a history of. On recheck she states that she is asymptomatic and the Zofran she received did help her symptoms quite a bit. Do not suspect any acute emergent surgical process or cardiac etiology, thus is stable for discharge home and she will advance diet as tolerated with Zofran for nausea. She is given strict return precautions to the ED and will follow-up with primary care for routine reevaluation. Patient agrees with this plan. Lab Data 02/22/25 16:00 02/22/25 16:00 Radiology Impressions Chest X-Ray 02/22/25 15:23 Impression: Hyperinflation. Abdomen/Pelvis CT 02/22/25 17:33 IMPRESSION: 1. Gallstone without definite significant acute inflammatory changes. 2. Fluid attenuation luminal material within several loops of small bowel, may be related to ingested material although can not exclude mild enteritis or diarrhea related process. COMMENTS: Consistent with the [employer]'s Incidental Findings Committee white paper (J Am Kimberlee Radiol 2018): Any incidental renal lesion less than 1 cm or classified as too small to characterize, or any incidental cystic renal lesion characterized as simple-appearing, is likely benign. No follow-up imaging is recommended for these lesions per consensus recommendations based on imaging criteria. Laboratory Results WBC 5.96 10^3/uL (3.29-11.43) 02/22/25 16:00 RBC 4.13 10^6/uL (3.85-5.65) 02/22/25 16:00 Hgb 12.50 g/dL (11.27-16.99) 02/22/25 16:00 Hct 39.6 % (36-47) 02/22/25 16:00 MCV 95.9 fl (85-98) 02/22/25 16:00 MCH 30.3 pg (27-33) 02/22/25 16:00 MCHC 31.6 g/dL (30-55) 02/22/25 16:00 RDW 13.2 % (12.1-15.1) 02/22/25 16:00 Plt Count 275 10^3/cmm (157-399) 02/22/25 16:00 MPV 9.6 fL (7.4-10.4) 02/22/25 16:00 Neut % (Auto) 56.6 % 02/22/25 16:00 Lymph % (Auto) 34.9 % 02/22/25 16:00 [place] % (Auto) 7.0 % 02/22/25 16:00 Eos % (Auto) 1.0 % 02/22/25 16:00 Baso % (Auto) 0.3 % 02/22/25 16:00 Neut # (Auto) 3.37 10^3/uL (1.8-7.7) 02/22/25 16:00 Lymph # (Auto) 2.1 10^3/uL (0.8-4.8) 02/22/25 16:00 [place] # (Auto) 0.4 10^3/uL (0.2-0.9) 02/22/25 16:00 Eos # (Auto) 0.1 10^3/uL (0.0-0.8) 02/22/25 16:00 Baso # (Auto) 0.0 10^3/uL (0.0-0.1) 02/22/25 16:00 Nucleated RBC % (auto) 0 % 02/22/25 16:00 Nucleated RBCs # 0.0 /100WBC 02/22/25 16:00 Sodium 139 mmol/L (136-145) 02/22/25 16:00 Potassium 3.9 mmol/L (3.5-5.1) 02/22/25 16:00 Chloride 102 mmol/L (98-107) 02/22/25 16:00 Carbon Dioxide 27 mmol/L (22-29) 02/22/25 16:00 Anion Gap 13.9 (5-19) 02/22/25 16:00 BUN 9 mg/dL (8-23) 02/22/25 16:00 Creatinine 0.8 mg/dL (0.5-0.9) 02/22/25 16:00 GFR Calculation 72.7 mL/min (90-130) L 02/22/25 16:00 Glucose 110 mg/dL (65-115) 02/22/25 16:00 Calculated Osmolality 287 mOsm/kg (285-295) 02/22/25 16:00 Calcium 9.3 mg/dL (8.5-10.5) 02/22/25 16:00 Total Bilirubin 0.2 mg/dL (0.15-1.2) 02/22/25 16:00 AST 11 U/L (0-32) 02/22/25 16:00 ALT 9 U/L (0-33) 02/22/25 16:00 Alkaline Phosphatase 102 U/L (35-105) 02/22/25 16:00 Troponin T Baseline < 6 ng/L (0-10) 02/22/25 16:00 Total Protein 7.4 g/dL (6.6-8.7) 02/22/25 16:00 Albumin 4.1 g/dL (3.5-5.2) 02/22/25 16:00 Globulin 3.3 g/dL (1.3-4.6) 02/22/25 16:00 Lipase 24 U/L (13-60) 02/22/25 16:00 Urine Color Yellow (Yellow) 02/22/25 17:10 Urine Appearance Clear (CLEAR) 02/22/25 17:10 Urine pH 5.5 (5-7) 02/22/25 17:10 Ur Specific [place] 1.020 (1.005-1.030) 02/22/25 17:10 Urine Protein Negative (Negative) 02/22/25 17:10 Urine Glucose (UA) Negative (Normal) 02/22/25 17:10 Urine Ketones Negative (Negative) 02/22/25 17:10 Urine Blood Trace (Negative) A 02/22/25 17:10 Urine Nitrate Negative (Negative) 02/22/25 17:10 Urine Bilirubin Negative (Negative) 02/22/25 17:10 Urine Urobilinogen 1.0 mg/dL (Negative) 02/22/25 17:10 Ur Leukocyte Esterase Negative (Negative) 02/22/25 17:10 Urine RBC 0-4 /hpf (0-2) H 02/22/25 17:10 Urine WBC 0-4 /hpf (0-5) H 02/22/25 17:10 Ur Squamous Epith Cells 0-4 /hpf (0-5) H 02/22/25 17:10 Amorphous Sediment Not Reportable 02/22/25 17:10 Urine Bacteria Trace /hpf (NONE) 02/22/25 17:10 Urine Mucus None /hpf 02/22/25 17:10 All radiology interpretation(s) finalized by discharge Discharge Plan Discharge Patient Disposition: Home Clinical Impression: Upper abdominal pain Condition: Stable Prescriptions: New ondansetron 4 mg tablet,disintegrating 4 mg PO TID PRN (Reason: nausea and vomiting) Qty: 30 0RF No Action cetirizine-pseudoephedrine 5-120 mg tablet extended release 12 hr PO estradiol 1 mg tablet PO alprazolam 0.5 mg tablet PO omeprazole 20 mg capsule,delayed release(DR/EC) PO ibuprofen 800 mg tablet PO Discharge Orders: Discharge ED (Routine); Ordered 02/22/25 Ordered By: Fab Pulido Patient Instructions: Patient Portal & Maryellen Instructions Activity Restrictions/Additional Instructions: Abdominal Pain Discharge Instructions You were evaluated for upper abdominal pain. Your heart and blood tests were normal, and imaging showed gallstones that are not causing symptoms and possible mild inflammation of the colon (colitis). No urgent problems were found. Medications: - You have been prescribed ondansetron for nausea. Take as directed if you feel sick to your stomach. Diet: - Start with a soft diet (foods that are easy to digest, such as bananas, rice, applesauce, toast, eggs, or yogurt). - Advance your diet as tolerated. If you feel well, you may slowly return to your regular foods. - Avoid fatty, greasy, or spicy foods until you are feeling better, as these can sometimes worsen symptoms, especially with gallstones. Activity: - Rest as needed. Resume normal activities as you feel able. Follow-up: - Schedule an appointment with your primary care provider within the next week for further evaluation and to discuss your imaging findings. - If symptoms persist or worsen, your doctor may recommend additional tests or referral to a specialist. Return to the Emergency Department if you experience any of the following: - Severe or worsening abdominal pain - Persistent vomiting or inability to keep fluids down - Fever or chills - Yellowing of the skin or eyes (jaundice) - Blood in your stool or black, tarry stools - Chest pain or shortness of breath Most patients with asymptomatic gallstones do not require surgery unless symptoms develop. Colitis is often managed with supportive care unless severe symptoms arise. Careful monitoring and follow-up are important. If you have any questions or concerns, please contact your healthcare provider. Print Language: Maltese Coding Level of Care Code ED [employer] Specialist for Chg Fwd Heart Score HEART Score Components History: Slightly Suspicous EKG: Normal Age: 45-64 yrs Risk Factors: No Risk Factors Known Troponin: Baseline Trop <16 ng/L HEART Score RESULT HEART Score: 1
[2025-02-22 17:22] LABS: Glucose Urine UA Negative (Normal); Nitrate Urine Negative (Negative); Specific Gravity, Urine 1.020 (1.005-1.030)
[2025-02-22] MEDS: lidocaine 2% viscous 15 ML, aluminum-mag hydrox-simethicon 30 ML, sucralfate oral liq 1 GM PO (17:22)
[2025-02-22 17:28] VITALS: BP 147/79; O2SAT 100
--- NOTE | 2025-02-22 17:33 | CTR_ITS ---
PROCEDURE INFORMATION: Exam: CT Abdomen And Pelvis With Contrast Exam date and time: 02/22/2025 5:56 PM Age: 64 years old Clinical indication: Abdominal pain; Other: Upper abd pain; Prior surgery; Surgery date: 6+ months; Surgery type: Hysterectomy; Patient reports chest pain/epigastric pain that radiates to her back bilaterally at bra line. pushed @2.5 due to iv TECHNIQUE: Imaging protocol: Computed tomography of the abdomen and pelvis with contrast. Radiation optimization: All CT scans at this facility use at least one of these dose optimization techniques: automated exposure control; mA and/or kV adjustment per patient size (includes targeted exams where dose is matched to clinical indication); or iterative reconstruction. Contrast material: [id number]; Contrast volume: 100 ml; Contrast route: INTRAVENOUS (IV); COMPARISON: CR XR chest 1V portable [id number] 02/22/2025 3:32 PM RADIATION DOSE METRICS: Total DLP (mGy-cm): 413.33 FINDINGS: Lungs: Small focus of bronchiectasis and mucous plugging in the left lower lobe. Liver: Normal. No mass. Gallbladder and biliary ducts: Gallstone without definite significant acute inflammatory changes. Pancreas: Normal. No ductal dilation. Spleen: Splenic granulomas. Adrenal glands: Normal. No mass. Kidneys and ureters: Few nonspecific although commonly benign renal cysts. Stomach and bowel: Fluid attenuation luminal material within several loops of small bowel, may be related to ingested material although can not exclude mild enteritis or diarrhea related process. Appendix: No evidence of appendicitis. Intraperitoneal space: Unremarkable. No free air. No significant fluid collection. Vasculature: Aortic atherosclerosis. Eccentric thrombus versus soft plaque in the origin of the SMA. Lymph nodes: Unremarkable. No enlarged lymph nodes. Urinary bladder: Unremarkable as visualized. Reproductive: Hysterectomy. Bones/joints: Mild degenerative changes of the lumbar vertebral bodies. Soft tissues: Unremarkable. CT/CT abdomen pelvis w con* [id number] IMPRESSION: 1. Gallstone without definite significant acute inflammatory changes. 2. Fluid attenuation luminal material within several loops of small bowel, may be related to ingested material although can not exclude mild enteritis or diarrhea related process. COMMENTS: Consistent with the [employer]'s Incidental Findings Committee white paper (J Am Kimberlee Radiol 2018): Any incidental renal lesion less than 1 cm or classified as too small to characterize, or any incidental cystic renal lesion characterized as simple-appearing, is likely benign. No follow-up imaging is recommended for these lesions per consensus recommendations based on imaging criteria.
[2025-02-22 17:41] VITALS: BP 139/54; O2SAT 100
[2025-02-22 17:45] LABS: Add Urine Microscopic? YES
[2025-02-22] MEDS: iohexol 350 mg/mL 500 mL Btl (per mL) IV (17:58)
[2025-02-22] MEDS: ondansetron 2 mg/ML SDV 2 mL 4 MG IVP (18:12)
[2025-02-22 19:12] LABS: Troponin 5 2HR 6.15 ng/L (0-10); Troponin 5 2HR Delta 0.15001 ABS# (0-10)
== END 2025-02-22 19:07 | disposition home or self-care (01) ==
PROVIDERS: Emergency Provider Physician Assistant
DX: R10.10 Upper abdominal pain, unspecified (principal); Z87.891 Personal history of nicotine dependence
CPT/HCPCS: 36415; 71045; 74177; 80053; 81001; 83690; 84484; 85025; 93005; 96374; 99285; J2405; J9999

== ENCOUNTER 2025-03-06 16:51 | Emergency (ER) | payer OTHER, SELFPAY ==
--- OUTSIDE RECORDS SUMMARY | 2025-03-06 16:56 | XMS_ITS | Data Portability ---
Author Organization [facility] Address [address] [place] [address] Care Team Providers Care Furnace Hand Name Role Phone KEENA HAMEED Primary Care Provider Unavailabl e Assessment No assessment recorded. Plan of Treatment Reminders Order Date Submit Date Provider Last Modified By Organization Details Last Modified Time Details Appointments ULTRASO UND 2024 08:00A M ULTRASOUND Not available Not available Not available RECHECK 15 2024 10:15A M Keena Hameed MD Not available Not available Not available Lab None recorde d. Referral gastroe nterolo gy surgery referra l 2024 025 [email or web address] Nirav Leon MD, [address], [place], [address], 03/05/2025 11:46:19 Procedures None recorde d. Surgeries None recorde d. Imaging US, darioa dder 2024 025 [email or web address] [facility] ([facility]), [address] [place] [address], [phone], 03/02/2025 16:52:58 XR, thoraci c spine, 3 view [facility] [address] [place] [address], [phone], 04/13/2024 08:47:31 Medication Orders flutica sone propion ate 50 mcg/act uation nasal spray,s uspensi on 2024 025 [facility] [place], [address] [place], [address], 10/07/2024 17:09:57 alprazo colon 0.5 mg tablet 2024 025 [facility] [place], [address] [place], [address], 11/27/2024 13:09:40 Patient TargetsNo targets recorded. Patient InstructionsNo instructions recorded. Reason for Referral Gastroenterology Surgery Ref erral for Abdominal pain Referring Physician: Keena Hameed, Family Medicine, Encounter Date: 03/02/2025 Results Created Date Observation Date Name Description [...] sampl e colle ction . Not Available Care Team Connect [address], [place], [address], 01/16/2025 11:31:22 04/13/20 24 04/10/2024 XR, thora cic spine , 3 view No observ ation record ed. [email or web address] [facility] [address] [place], [address], 04/13/2024 14:53:00 Result Notes None recorded. Problems Name Problem SNOMED Code Status Onset Date Resolution Date Notes Provider Name and Address Organization Details Recorded Time Irritabl e bowel syndrome 01930271 Active 2022 IBS; 06/18/19 8:56AM by Yesika Larose, Office Visit; Promoted ; acuity set as *; JESUS hannon [facility] 16:51:20 Urticari a 254308661 Active 2022 Urticari a; 06/18/19 8:56AM by Yesika Larose, Office Visit; Promoted ; acuity set as *; JESUS DOMINGUEZJEFFERYKINGSLEY hannon, [facility] 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 5 16:51:30 Generali zed anxiety disorder 10619195 Active [address] [facility] 5 16:51:20 Thoracic back pain 989256742 Active 2022 JESUS hannon, [facility] 5 16:51:20 Chronic osteoart hritis 42862163 Active [address] [facility] 5 16:51:20 Pain of multiple joints 41672334 Active [address] [facility] 5 16:51:20 Compress ion fracture of thoracic vertebra 23351827104 04 Completed 202309/30/2024 JESUS hannon, [facility] 5 16:51:30 Allergic rhinitis 41290961 Active 2024 Keena Hameed MD [address] [place] [address], [phone] , [facility] 5 17:14:27 Abdomina l pain 98354399 Active 2024 Keena Hameed MD [address] [place] [address], [phone], [facility] 5 15:35:15 Problem Notes None recorded. Medical Equipment None Reported. Allergies Allergen ID Allergen Name Allergen Category Reaction Reaction Severity Criticality Documentation Date Start Date Code Code System Note Provider Name and Address Organization Details Recorded Time 55540 cyclobenz aprine hydrochlo ride medicatio n Not available Not available Not available 12/15/2022 31311 RxNorm Comme nt: Recor ded 06/18 8:56A M by Brand edin Mchugh s, Offic e Visit ; Promo catrachita; Ubaldo valenzuela ce: *; ; JESUS hannon, [facility] 4 11:36:48 54509 escitalop [place] Not available Not available Not available Not available 12/15/2022 15452 8 RxNorm Comme nt: Recor ded 06/18 8:56A M by Brand edin Mchugh s, Offic e Visit ; Promo catrachita; Ubaldo valenzuela ce: *; ; JESUS hannon, [facility] 4 11:36:49 36794 acetamino phen / oxycodone medicatio n Not available Not available Not available 12/15/2022 36330 3 RxNorm Comme nt: Recor ded 06/18 8:56A M by Brand edin Mchugh s, Offic e Visit ; Promo catrachita; Ubaldo valenzuela ce: *; ; JESUS hannon, [facility] 4 11:36:50 Medications Name Sig [...] TAKE 1 TABLET BY MOUTH EVERY DAY active Not Available Not Available No t Available ivermecti n 6 mg tablet TAKE 2 TABLETS BY MOUTH single DOSE and THEN take TWO tablets a week LATER 03/02 completed Not Available Not Available Not Available omeprazol e 20 mg capsule,d elayed release TAKE 1 CAPSULE BY MOUTH EVERY DAY active Not Available Not Available No t Available levofloxa ruiz 500 mg tablet TAKE 1 TABLET BY MOUTH every 24 hours FOR uti for 7 days 10/15 completed Not Available Not Available Not Available fluticaso ne propionat e 50 mcg/actua tion nasal spray,ten pension [employer] 2 sprays every day by intranas al [...] Tablet; Not Available Not Available Not Available ivermecti n 1 % topical cream apply topicall y ONCE daily TO face active Not Available Not Available No t Available Vitals Date Recorded Body height Body mass index (BMI) Body weight Heart rate Systolic And Diastolic Provider Name and Address Organization Details Last Updated DateTime 09/30/2024 168.91 cm 24.2 kg/m2 59402.04 g 64 /min 118/63 mm[Hg] JESUS BETHEA [facility] 5 16:56:13 Date Recorded Body mass index (BMI) Body weight Oxygen saturation Oxygen saturation in Arterial blood by Pulse oximetry Heart rate Respiratory rate Body temperature Systolic And Diastolic Provider Name and Address Organization Details Last Updated DateTime 5 24.6 kg/m2 55761.8 2 g 97 % 97 % 76 /min 18 /min 97 [degF] 122/70 mm[Hg] PASTORA RO [facility] 5 13:45:43 Date Recorded Body height Provider Name an d Address Organization Details Last Updated DateTime 10/28/[address]24 [address] [facility] 10/28/2024 13:41:33 Date Recorded Body height Body mass index (BMI) Body weight Body temperature Oxygen saturation Oxygen saturation in Arterial blood by Pulse oximetry Heart rate Systolic And Diastolic Provider Name and Address Organization Details Last Updated DateTime 5 168.91 cm 24.6 kg/m2 31983.8 2 g 97.9 [degF] 94 % 94 % 69 /min 180/88 mm[Hg] Carmen Aceves [facility] 5 15:38:53 Date Recorded Body height Body mass index (BMI) Body weight Systolic And Diastolic Provider Name and Address Organization Details Last Updated DateTime 03/02/2025 168.91 cm 23.8 kg/m2 99488.86 g 120/70 mm[Hg] [facility] 03/02/2025 15:03:00 Date Recorded Body height Body mass index (BMI) Body weight Oxygen saturation Oxygen saturation in Arterial blood by Pulse oximetry Heart rate Systolic And Diastolic Provider Name and Address Organization Details Last Updated DateTime 4 168.91 cm 23.8 kg/m2 50513.8 6 g 97 % 97 % 67 /min 116/70 mm[Hg] [facility] 14:50:33 Social History Question Answer Notes LastModified by Organizat ion Details LastModified Time Tobacco Smoking Status Former Smoker JESUS BETHEA null, [facility] 03/26/2023 11:41:15 What Was The [...] and Address Organization Details Recorded Time Tdap 8 completed Not Available [facility] 12/15/2022 02:38:59 zoster recombinant 5 completed Not Available [facility] 03/02/2025 15:11:00 Tdap 3 completed JILL DOWNEY PA-C [address] [place] [address], [phone], [facility] 04/05/2023 17:17:28 Past Encounters Encounter ID Performer Location Encounter Start Date Encounter Closed Date Diagnosis/Indication Diagnosis SNOMED-CT Code Diagnosis ICD10 Code Diagnosis IMO Codes Diagnosis Note [id number] Keena Hameed MD [facility] ([facility]) [address] [place] [id number] 03/26/2023 11:02:08 03/26/2023 15:32:09 Irritable bowel syndrome 81424177 K58.9 stable at this time Generalize d anxiety disorder 88293092 F41.1 stable. Active or passive immunization 536908285 Z23 Adult heal th examination 539797448 Z00.00 Thoracic back pain 79521 8004 M54.6 [id number] JILL DOWNEY PA-C [facility] ([facility]) [address] [place] [address] 04/05/2023 10:25:47 04/05/2023 18:41:52 Pain of left hand 7825384269 53166 M79.642 no fx seen.able to return to work. Laceration of finger of left hand 7093101739 0128195 S61.227A see exam. watch for infection. Clean daily and keep covered. [id number] MARA MEDINA [facility] ([facility]) [address] [place] [phone] 08/03/2023 13:56:15 08/03/2023 15:12:05 Acute urinary tract infection 802519827 N39.0 [id number] Keena Hameed MD [facility] ([facility]) [address] [place] [phone] 08/13/2023 11:44:22 08/13/2023 17:40:05 Dysuria 21330187 R30.0 Chronic osteoarthritis 61606542 M19.90 [id number] Keena Hameed MD [facility] ([facility]) [address] [place] [phone] 10/16/2023 10:41:26 10/16/2023 13:05:41 Generalized anxiety disorder 89725328 F41.1 stable. Irritable bowel syndrome 06392509 K58.9 stable at this time Thoracic back pain 20323 8004 M54.6 stable Pain of mu ltiple joints 63560699 M25.50 Adult heal th examination 451783619 Z00.00 [id number] Keena Hameed MD [facility] ([facility]) [address] [place] [phone] 04/10/2024 14:39:14 04/10/2024 15:51:18 Urticaria 833520052 L50.9 Pain of mu ltiple joints 24573933 M25.50 Rheumatolo gist appt. in April in April. Compressio n fracture of thoracic vertebra 1872087256 104 M48.54XD history of T8 compressio n fracture with continued pain. [id number] Keena Hameed MD [facility] ([facility]) [address] [place] [phone] 09/30/2024 15:53:13 10/03/2024 06:55:51 Urticaria 470476638 L50.9 Generalize d anxiety disorder 72369450 F41.1 stable. Thoracic back pain 93298 8004 M54.6 stable Pain of mu ltiple joints 99856607 M25.50 stable, Rheumatolo gist felt false positive BRIAN Allergic rhinitis 524264 04 J30.9 1726187 [id number] JILL DOWNEY PA-C [facility] ([facility]) [address] [place], [place] [address] 10/28/2024 13:39:14 10/28/2024 15:22:06 Insect sting 153151949 T63.481A W57.XXXA 35057007 no evidence of infection. large amnt of bruising associated with in.Low suspicion of DVT. Varicose v eins of lower extremity 96362739 I83.050 2292364 mild edema L>R [id number] MARA MEDINA [facility] ([facility]) [address] [place] [phone] 02/22/2025 15:28:39 02/22/2025 16:05:03 Epigastric pain 03247034 R10.13 [id number] Sent to ER for further evaluation and treatment. Report to ER staff Violette by Carmen MEJÍA. Patient wishes to go to ER per private vehicle. [id number] Keena Hameed MD [facility] ([facility]) [address] [place] [address] 5 03/02/2025 14:40:47 03/02/2025 15:54:04 Abdominal pain 22486578 R10.9 RUQ pain, strongly suspect gallbladde r related problems with symptoms and exam including positive Avina's sign. Health Concerns Section Related Observation LastModified by Organization Detai ls LastModified Time None Recorded Concern Status LastModified by Organization Details LastModified Time None Recorded Advance Directives Directive None Recorded Payers Insurance Date Sequence Insurance Name Policy Number Policy Duran Covered Member ID Duran Member ID Guarantor Name 03/02/2025 JUAN R BECK [id number] Betzy Breen 02/23/2025 1 [employer] [id number] Betzy Breen [id number] Betzy Breen 03/02/2025 1 [id number] - [employer] - [employer] (PPO) [id number] Betzy Breen [id number] Betzy Breen Notes Date Note Type Note [...] by at least 2016. Keena Hameed MD [address] [place] [address], [phone], [facility], LFadiLSusy. 05/25/2024 18:25:09 10/28/2024 text/html Skin LesionRepor catrachita by PatientHPIFor location, patient reportsleg. For quality, patient reportsitchy. For severity, patient reportsmoderate. For duration, patient reports3 days. For timing, patient reportsabruptandconsta nt. got insect bite on back of right knee and it instantly swelled up and bruised, worried becasue brother had blood clots. JILL DOWNEY PA-C [address] [place] [address], [phone], [facility], LPhillip 10/28/2024 14:09:41 02/22/2025 text/html ROS as noted in the HPI walk inIncreasing chest pain, epi-gastric hurting through to back with band radiation to back, fatigue and nausea. Patient states that she took omeprazole this AM and also tums about an hour ago with no relief. Denies shortness of breath. MARA MEDINA [address] [place] [address], [phone], [facility], Thiago. 02/22/2025 15:57:03 03/02/2025 text/html Abdominal PainRe ported by PatientAbdominal PainFor quality, patient reportsachingandsharp. For associated symptoms, patient reportsdiarrhea,consti pation, anddecreased appetitebut reportsno nausea,no vomiting, andno constipation. For location, patient reportsruq,luq, andradiating. For severity, patient reportsmoderate. For duration, patient reportsconstant. For aggravating factors, patient reportsmovement. Came to walk in on 02/22/25 and walk in sent her to ER.Having over all joint pain and would like to discuss hormones. She was found to have gallstones and negative cardiac workup. Keena Hameed MD [address] [place] [address], [phone], [facility] 03/02/2025 15:41:31 OBGyn Episode No OBEpisode recorded.
--- OUTSIDE RECORDS SUMMARY | 2025-03-06 16:56 | XMS_ITS | Encounter Summary ---
Author Organization [facility] Address [address] [place] [address] Care Team Providers Care Nurse Chemical Dependency Name Role Phone Unavailable Primary Care Provider Unavailabl e Reason for Referral * Eval and Treat (Routine) - Open Specialty Diagnoses / Procedures Referred By Contac t Referred To Contact General Surgery Diagnoses Abdominal pain, unspecified abdominal location Procedures FL OFFICE/OUTPATIENT ESTABLISHED MOD MDM 30 MIN FL OFFICE/OUTPATIENT NEW MODERATE MDM 45 MINUTES Niall Hameed MD [address] [address] Phone: tel: fax: [facility] [address] [address] Phone: tel: fax: Referral ID Status Reason Start Date Expiration Date Visits Re quested Visits Authorized [id number] Open 03/04/2025 03/04/2026 1 1 Encounter Details Date Type Department Care Team (Late st Contact Info) Description 03/04/2025 Orders Only [facility] [address] [address] Niall Hameed MD [address] [place] [address] Abdominal pain, unspecified abdominal location (Primary Dx) Social History Tobacco Use Types Packs/Day Years Used Date Smoking Tobacco: Some Days Cigarettes Comments Unknown Sex and Gender Information Value Date Recorded Sex Assigned at Not on file Legal Sex Female 11:57 AM CDT Gender Identity Not on file Sexual Orientation Not on file documented as of this encounter Plan of Treatment Scheduled Referrals Name Type Priority Associated Diagnoses Order Schedule AMB REFERRAL TO GASTROENTEROLOGY Outpatient Referral Routine Abdominal pain, unspecified abdominal location Ordered: 03/04/2025 documented as of this encounter Visit Diagnoses Diagnosis Abdominal pain, unspecified abdominal location- Primary documented in this encounter
--- OUTSIDE RECORDS SUMMARY | 2025-03-06 16:56 | XMS_ITS | Clinical Summary ---
Author Organization [facility] Address [address] [place] [address] Phone Care Team Providers Care Film Masker Name Role Phone Unavailable Primary Care Provider [...] Encounters Date Type Department Care Team Description 03/04/2025 Orders Only [facility] [place] [address] [place] [address] Niall Hameed MD Abdominal pain, unspecified abdominal location (Primary Dx) 12/22/2024 External Device Data STL ABSTRACTION Provider, [...] Comments Blood Pressure 120/72 05/07/2024 10:01 AM DUTY ENGINEER Pulse 70 05/07/2024 10:01 AM DUTY ENGINEER Temperature - - Respiratory Rate - - Oxygen Saturation 98% 05/07/2024 10:01 AM DUTY ENGINEER Inhaled Oxygen Concentration - - Weight 67.1 kg (148 lb) 05/07/2024 10:01 AM DUTY ENGINEER Height 172.7 cm (5' 8 ) 05/07/2024 10:01 AM DUTY ENGINEER Body Mass Index 22.5 05/07/2024 10:01 AM DUTY ENGINEER Plan of Treatment Health Maintenance Due Date Last Done Comments DTAP/TDAP/TD VACCINES (1 - Tdap) 1981 HPV/Cotest (21-29) 12/30/1983 CERVICAL CANCER SCREENING 1992 HPV/Cotest (30-65) 1992 PAP SMEAR 1992 BREAST CANCER SCREENING 2002 COLORECTAL SCREENING 12/30/2007 Colorectal Cancer Screening 12/30/2007 FIT-DNA Q 3 years 12/30/2007 FIT/FOBT Q 1 year 12/30/2007 Flex Sig/CT Colonography Q 5 years 12/30/2007 ZOSTER VACCINE (1 of 2) 2012 Preventative Visit- Commercial 05/20/2024 INFLUENZA VACCINE (#1) 2024 RSV VACCINE (60+ or ) (1 - 1-dose 75+ series) [address] [place] [address] OPEN ACCESS O
--- OUTSIDE RECORDS SUMMARY | 2025-03-06 16:57 | XMS_ITS | Continuity of Care Document ---
Author Organization [facility] Alexandre Dorado [facility] Kendall Michele, [facility] ([facility]) Address [address] [place] [phone] Care Team Providers Care Orthotics Prosthetics Assistant Name Role Phone KEENA HAMEED Primary Care [...] nterolo gy surgery referra l 2024 025 Nirav Leon MD, [address] [facility] [address], [place], [address], 03/05/2025 11:46:19 Procedures None recorde d. Surgeries None recorde d. Imaging US, gallbla dder 2024 025 [email or web address] [facility] ([facility]), [address] [place], [address], 03/02/2025 16:52:58 Medication Orders None recorde d. Patient TargetsNo targets recorded. Patient InstructionsNo instructions recorded. Reason for Referral Gastroenterology Surgery Ref erral for Abdominal pain Referring Physician: Keena Hameed, Family Medicine, Encounter Date: 03/02/2025 Problems Name Problem SNOMED Code Status Onset Date Resolution Date Notes Provider Name and Address Organization Details Recorded Time Irritabl e bowel syndrome 67563885 Active 2022 IBS; 06/18/19 8:56AM by Kaya Nolan, Office Visit; Promoted ; acuity set as *; JESUS hannon, [facility] 5 16:51:20 Urticari a 284849387 Active 2022 Urticari a; 06/18/19 8:56AM by Kaya Nolan, Office Visit; Promoted ; acuity set as *; JESUS hannon, [facility] 5 16:51:20 Bacteria l intestin al infectio us disease 781684029 Completed 202209/30/2024 Helicoba cter Pylori Infectio n; 2006.; 06/18/19 8:56AM by Kaya Nolan, Office Visit; Promoted ; acuity set as *; JESUS hannon, [facility] 5 16:51:30 Generali zed anxiety disorder 23445218 Active 2022 JESUS MARITZAKINGSLEY riddhi, [facility] 5 16:51:20 Thoracic back pain 162578826 Active 2022 JESUS ANGELICAROHAN riddhi, [facility] 5 16:51:20 Chronic osteoart hritis 12010033 Active 2023 JESUS hannon [facility] 5 16:51:20 Pain of multiple joints 10492128 Active 2023 JESUS BETHEA riddhi, [facility] 5 16:51:20 Compress ion fracture of thoracic vertebra 44300845163 04 Completed 202309/30/2024 JESUS BETHEA riddhi [facility] 5 16:51:30 Allergic rhinitis 46112302 Active 2024 Keena Hameed MD [address] [place] [address], [phone], [facility] 5 17:14:27 Abdomina l pain 34029946 Active 2024 Keena Hameed MD [address] [place], [phone], [facility] 5 15:35:15 Problem Notes None recorded. Medical Equipment None Reported. Allergies Allergen ID Allergen Name Allergen Category Reaction Reaction Severity Criticality Documentation Date Start Date Code Code System Note Provider Name and Address Organization Details Recorded Time 85988 cyclobenz aprine hydrochlo ride medicatio n Not available Not available Not available 12/15/2022 60482 RxNorm Comme nt: Recor ded 06/18 8:56A M by Mickey Mchugh s, Offic e Visit ; Promo catrachita; Signi nicolas ce: *; ; JESUS hannon, [facility] 4 11:36:48 28203 escitalop [place] Not available Not available Not available Not available 12/15/2022 74789 8 RxNorm Comme nt: Recor ded 06/18 8:56A M by Mickey Sageri s, Offic e Visit ; Promo catrachita; Ubaldo valenzuela ce: *; ; JESUS LAKE riddhi, [facility] 4 11:36:49 55277 acetamino phen / oxycodone medicatio n Not available Not available Not available 12/15/2022 27848 3 RxNorm Comme nt: Recor ded 06/18 8:56A M by Brand edin Sageri s, Offic e Visit ; Promo catrachita; Signi nicolas ce: *; ; JESUS hannon [facility] 4 11:36:50 Medications Name Sig Start [...] e 50 mcg/actua tion nasal spray,ten pension [place] 2 sprays every day by intranas al [...] Updated DateTime 03/02/2025 168.91 cm 23.8 kg/m2 22955.86 g 120/70 mm[Hg] KAYA NOLAN [facility] 03/02/2025 15:03:00 Social History Question Answer Notes LastModified by Organizat ion Details LastModified Time Tobacco Smoking Status Former Smoker JESUS BETHEA riddhi, [facility] 03/26/2023 11:41:15 What Was The Date [...] Recorded Time Tdap 8 completed Not Available [facility] 12/15/2022 02:38:59 zoster recombinant 5 completed Not Available [facility] 03/02/2025 15:11:00 Tdap 3 completed JILL DOWNEY PA-C [address] [place] [address], [phone], [facility] 04/05/2023 17:17:28 Past Encounters Encounter ID Performer Location Encounter Start Date Encounter Closed Date Diagnosis/Indication Diagnosis SNOMED-CT Code Diagnosis ICD10 Code Diagnosis IMO Codes Diagnosis Note [id number] MARA MEDINA [facility] ([facility]) [address] [place] [address] 02/22/2025 15:28:39 02/22/2025 16:05:03 Epigastric pain 39706657 R10.13 [id number] Sent to ER for further evaluation and treatment. Report to ER staff Violette by Carmen MEJÍA. Patient wishes to go to ER per private vehicle. [id number] Keena Hameed MD [facility] ([facility]) [address] [place] [address] 03/02/2025 14:40:47 03/02/2025 15:54:04 Abdominal pain 27925930 R10.9 RUQ pain, strongly suspect gallbladde r related problems with symptoms and exam including positive Avina's sign. Health Concerns Section Related Observation LastModified by Organization Detai ls LastModified Time None Recorded Concern Status LastModified by Organization Details LastModified Time None Recorded Payers Encounter Date Sequence Insurance Name Policy Number Policy Duran Covered Member ID Duran Member ID Guarantor Name 03/02/[address] [place] [address] [employer] [id number] Betzy Breen [id number] Betzy Breen Notes Date Note Type Note Provider Name and Address Organization Details Recorded Time 03/02/2025 text/html Abdominal PainRe ported by PatientAbdominal [...] and negative cardiac workup. Keena Hameed MD [address] [place] [address], [phone], [place] - Baldomero Santacruz [facility], Kendall 03/02/2025 15:41:31 OBGyn Episode No OBEpisode recorded.
[2025-03-06 17:01] VITALS: BP 121/72; PULSE 74; RESP 16; TEMP 36.7; O2SAT 98; BMI 22.4
--- NOTE | 2025-03-06 17:02 | USR_ITS ---
PROCEDURE INFORMATION: Exam: US Abdomen, Limited; Right Upper Quadrant Exam date and time: 03/06/2025 6:07 PM Age: 64 years old Clinical indication: Abdominal pain; Localized; Right upper quadrant (ruq); Additional info: Ruq pain TECHNIQUE: Imaging protocol: Real time ultrasound of the abdomen with image documentation. Limited exam focused on the right upper quadrant. COMPARISON: CT abdomen pelvis w con* [id number] 02/22/2025 5:56 PM FINDINGS: Liver: Normal. No masses. Gallbladder: Cholelithiasis with 2 large calculi 1 measuring 1 point 3 cm in diameter in the other 1 point 5 cm in diameter. These are mobile. Some sludge and maybe smaller calculi present. No distension of the gallbladder. No wall thickening. No ductal dilatation. Biliary ducts: Normal. No stones. No dilation. Pancreas: Head, body, and proximal tail visualized and appears normal. Right kidney: Right kidney appears unremarkable. Small cysts upper pole right kidney seen on CT of 02/22/2025 not demonstrated. Calices nondistended. No cortical thinning. Extrarenal pelvis. US/US gall bladder [id number] IMPRESSION: 1. Cholelithiasis without complication.. 2. Right extrarenal pelvis as seen previously.
[2025-03-06 17:26] LABS: Add Urine Microscopic? NO
[2025-03-06 17:29] LABS: Glucose Urine UA Negative (Normal); Nitrate Urine Negative (Negative); Specific Gravity, Urine 1.002 (1.005-1.030)
[2025-03-06 17:31] LABS: Charge for UA Resulting for Rev
--- NOTE | 2025-03-06 17:42 | W.ED.ABDPA2 ---
HPI - Abdominal Pain General: Chief Complaint: Abdominal Pain Stated Complaint: Upper ABD Rside back/Shoulder Pain Time Seen by Provider: 03/06/25 17:29 Source: patient Mode of arrival: ambulatory Limitations: no limitations History of Present Illness: 64-year-old female states that she been having intermittent abdominal pains over a week. She seen her last week had a CT scan that showed gallstones states today she has had some increased pain in her right upper quadrant is been worse with eating. She had some nausea as well. States pain radiates to her right shoulder she denies any fevers denies any diarrhea Related Data Home Medications ?Medication ?Instructions ?Recorded ?Confirmed alprazolam 0.5 mg tablet mg PO 01/08/24 01/08/24 cetirizine 5 mg-pseudoephedrine ER tab PO 01/08/24 01/08/24 120 mg tablet,extended release,12hr estradiol 1 mg tablet mg PO 01/08/24 01/08/24 ibuprofen 800 mg tablet mg PO 01/08/24 01/08/24 omeprazole 20 mg capsule,delayed mg PO 01/08/24 01/08/24 release Previous Rx's ?Medication ?Instructions ?Recorded ondansetron 4 mg disintegrating 4 mg PO TID PRN nausea and 02/22/25 tablet vomiting #30 tabs hydrocodone 5 mg-acetaminophen 325 1 tab PO Q6H PRN pain #14 tabs 03/06/25 mg tablet Allergies Allergy/AdvReac Type Severity Reaction Status Date / Time oxycodone Allergy ADR-Itching Verified 03/06/25 17:04 Review of Systems GI: Reports: abdominal pain [facility] ED PFSH: Social History Smoking and tobacco/nicotine status: former use of tobacco/nicotine Physical Exam Const: COMMON NORMALS: no acute distress, patient oriented x3 and healthy appearing HENMT: COMMON NORMALS: normocephalic and atraumatic HEAD & SCALP: normocephalic and atraumatic Neck/C-Spine: COMMON NORMALS: full ROM and supple Chest: COMMONS NORMALS: normal inspection of the chest Resp: COMMON NORMALS: normal respiratory effort, No use of accessory muscles and clear to auscultation bilaterally AUSCULTATION: clear to auscultation bilaterally Cardio: COMMON NORMALS: regular rate, regular rhythm and No murmurs present (Cardio) RATE: regular rate RHYTHM: regular rhythm GI: COMMON NORMALS: Normal to inspection, nondistended, normoactive bowel sounds present, Soft to palpation and no masses PALPATION: Yes Soft to palpation and Yes Tenderness to palpation present (GI) Details: RUQ Extremity: COMMON NORMALS: normal to inspection and full ROM Neuro: COMMON NORMALS: patient oriented x3, moves all extremities and no focal motor deficits Psych: COMMON NORMALS: mental status grossly normal, Normal thought process present and cooperative THOUGHT PROCESS: Normal thought process present Skin: COMMON NORMALS: no rashes or lesions noted and no wounds GENERAL SKIN EXAM: no rashes or lesions noted Course Vital Signs: Vital signs: Vital Signs Temperature 98.1 F 03/06/25 17:01 Pulse Rate 74 03/06/25 17:01 Respiratory Rate 16 03/06/25 17:01 Blood Pressure 136/71 03/06/25 19:57 Pulse Oximetry 98 03/06/25 19:57 Oxygen Delivery Me thod Room Air 03/06/25 17:01 MDM - Abdominal Pain Medical Decision Making Patient presents here with abdominal pains in her right upper quadrant. Differential included cholelithiasis, cholecystitis, pancreatitis. Ultrasound CT here does show gallstones but no signs of cholecystitis her pain has improved exam and discharge benign she has no signs of pancreatitis her white count electrolytes lipase were all normal here. She is to follow-up with the surgeon will prescribe her [place] for home. She is return if worsening she understands agrees to plan. Medical Records I reviewed the patient's medical records. Lab Data I reviewed the patient's lab results. 03/06/25 17:59 03/06/25 17:59 Labs/Radiology: Radiology Impressions Gallbladder Ultrasound 03/06/25 17:02 IMPRESSION: 1. Cholelithiasis without complication.. 2. Right extrarenal pelvis as seen previously. Abdomen/Pelvis CT 03/06/25 18:16 IMPRESSION: 1. Cholelithiasis and sludge in the gallbladder. No wall thickening and no ductal dilatation. 2. Slight distension of the proximal right ureter which appears to overlying vessel. 3. Hysterectomy. 1 cm left ovarian cyst. 4. Submucosal fatty infiltration of the ascending colon and hepatic flexure of the colon. This can be seen with previous inflammatory disease. Some prominence of the wall of the descending colon without pericolonic stranding. This may be underdistention. Correlate for any symptoms of colitis. 5. Bronchiectasis and bronchial plugging left lower lobe again seen. 6. Small hiatal hernia. Laboratory Results WBC 4.50 10^3/uL (3.29-11.43) 03/06/25 17:59 RBC 4.15 10^6/uL (3.85-5.65) 03/06/25 17:59 Hgb 12.60 g/dL (11.27-16.99) 03/06/25 17:59 Hct 39.1 % (36-47) 03/06/25 17:59 MCV 94.2 fl (85-98) 03/06/25 17:59 MCH 30.4 pg (27-33) 03/06/25 17:59 MCHC 32.2 g/dL (30-55) 03/06/25 17:59 RDW 13.0 % (12.1-15.1) 03/06/25 17:59 Plt Count 320 10^3/cmm (157-399) 03/06/25 17:59 MPV 9.5 fL (7.4-10.4) 03/06/25 17:59 Neut % (Auto) 45.4 % 03/06/25 17:59 Lymph % (Auto) 49.1 % 03/06/25 17:59 [place] % (Auto) 4.7 % 03/06/25 17:59 Eos % (Auto) 0.4 % 03/06/25 17:59 Baso % (Auto) 0.2 % 03/06/25 17:59 Neut # (Auto) 2.04 10^3/uL (1.8-7.7) 03/06/25 17:59 Lymph # (Auto) 2.2 10^3/uL (0.8-4.8) 03/06/25 17:59 Johnson # (Auto) 0.2 10^3/uL (0.2-0.9) 03/06/25 17:59 Eos # (Auto) 0.0 10^3/uL (0.0-0.8) 03/06/25 17:59 Baso # (Auto) 0.0 10^3/uL (0.0-0.1) 03/06/25 17:59 Nucleated RBC % (auto) 0 % 03/06/25 17:59 Nucleated RBCs # 0.0 /100WBC 03/06/25 17:59 Sodium 139 mmol/L (136-145) 03/06/25 17:59 Potassium 3.7 mmol/L (3.5-5.1) 03/06/25 17:59 Chloride 104 mmol/L (98-107) 03/06/25 17:59 Carbon Dioxide 24 mmol/L (22-29) 03/06/25 17:59 Anion Gap 14.7 (5-19) 03/06/25 17:59 BUN 5 mg/dL (8-23) L 03/06/25 17:59 Creatinine 0.6 mg/dL (0.5-0.9) 03/06/25 17:59 GFR Calculation 101.3 mL/min (90-130) 03/06/25 17:59 Glucose 104 mg/dL (65-115) 03/06/25 17:59 Calculated Osmolality 286 mOsm/kg (285-295) 03/06/25 17:59 Calcium 9.0 mg/dL (8.5-10.5) 03/06/25 17:59 Total Bilirubin 0.5 mg/dL (0.15-1.2) 03/06/25 17:59 AST 14 U/L (0-32) 03/06/25 17:59 ALT 10 U/L (0-33) 03/06/25 17:59 Alkaline Phosphatase 93 U/L (35-105) 03/06/25 17:59 Total Protein 7.4 g/dL (6.6-8.7) 03/06/25 17:59 Albumin 3.9 g/dL (3.5-5.2) 03/06/25 17:59 Globulin 3.5 g/dL (1.3-4.6) 03/06/25 17:59 Lipase 13 U/L (13-60) 03/06/25 17:59 Urine Color Yellow (Yellow) 03/06/25 17:16 Urine Appearance Clear (CLEAR) 03/06/25 17:16 Urine pH 7.0 (5-7) 03/06/25 17:16 Ur Specific [place] 1.002 (1.005-1.030) L 03/06/25 17:16 Urine Protein Negative (Negative) 03/06/25 17:16 Urine Glucose (UA) Negative (Normal) 03/06/25 17:16 Urine Ketones Negative (Negative) 03/06/25 17:16 Urine Blood Negative (Negative) 03/06/25 17:16 Urine Nitrate Negative (Negative) 03/06/25 17:16 Urine Bilirubin Negative (Negative) 03/06/25 17:16 Urine Urobilinogen 0.2 mg/dL (Negative) 03/06/25 17:16 Ur Leukocyte Esterase Negative (Negative) 03/06/25 17:16 Amorphous Sediment Not Reportable 03/06/25 17:16 All radiology interpretation(s) finalized by discharge Discharge Plan Discharge Patient Disposition: Home Clinical Impression: Abdominal pain, Cholelithiasis Condition: Stable Prescriptions: New hydrocodone-acetaminophen 5-325 mg tablet 1 tab PO Q6H PRN (Reason: pain) Qty: 14 0RF No Action cetirizine-pseudoephedrine 5-120 mg tablet extended release 12 hr PO estradiol 1 mg tablet PO alprazolam 0.5 mg tablet PO omeprazole 20 mg capsule,delayed release(DR/EC) PO ibuprofen 800 mg tablet PO ondansetron 4 mg tablet,disintegrating 4 mg PO TID PRN (Reason: nausea and vomiting) Qty: 30 0RF Discharge Orders: Discharge ED (Routine); Ordered 03/06/25 Ordered By: Tadeo Fu Discharge Diet: Advance as tolerated Discharge Activity: Resume usual activity Patient Instructions: Biliary Colic (ED), Abdominal Pain (ED), Opioid Safety Print Language: Chadian Coding Level of Care Code ED Product Support Specialist for Thao Cox
[2025-03-06 18:04] LABS: Hematocrit 39.1 % (36-47); Hemoglobin 12.60 g/dL (11.27-16.99); Mean Corpuscular HGB Conc 32.2 g/dL (30-55); Mean Corpuscular Hemoglobin 30.4 pg (27-33); Mean Corpuscular Volume 94.2 fl (85-98); Nucleated Red Blood Cells % 0 %; Platelet Count 320 10^3/cmm (157-399); Red Blood Count 4.15 10^6/uL (3.85-5.65); White Blood Count 4.50 10^3/uL (3.29-11.43)
--- NOTE | 2025-03-06 18:16 | CTR_ITS ---
PROCEDURE INFORMATION: Exam: CT Abdomen And Pelvis Without Contrast Exam date and time: 03/06/2025 6:20 PM Age: 64 years old Clinical indication: Abdominal pain; Right; Prior surgery; Surgery date: 6+ months; Surgery type: Hysterectomy; C/O ruq/rt flank pain. Known cholelithiasis. TECHNIQUE: Imaging protocol: Computed tomography of the abdomen and pelvis without contrast. Radiation optimization: All CT scans at this facility use at least one of these dose optimization techniques: automated exposure control; mA and/or kV adjustment per patient size (includes targeted exams where dose is matched to clinical indication); or iterative reconstruction. COMPARISON: CT abdomen pelvis w con* [id number] 02/22/2025 5:56 PM RADIATION DOSE METRICS: Total DLP (mGy-cm): 382.13 FINDINGS: Heart: Lower chest: Heart size normal. Bronchiectasis and bronchial plugging left lower lobe again seen. Liver: Some calcified granulomas. No mass. Gallbladder and biliary ducts: 1.6 and a 1.75 cm calculus. [place] to be some sludge. The no distension of the gallbladder. No wall thickening. No ductal dilatation Pancreas: Normal. No ductal dilation. Spleen: Calcified granuloma. No splenomegaly. Adrenal glands: Normal. No mass. Kidneys and ureters: Normal. Calices nondistended. [place] to be bilateral extrarenal pelves. Slight distension of the proximal right ureter. This is felt to be due to an overlying vessel. No right calculus demonstrated. Stomach and bowel: Small hiatal hernia. [id number] amount of fluid in the stomach represent some delayed emptying.. Small bowel unremarkable. There is a low-lying cecum mildly dilated containing semi solid stool. There is submucosal fatty infiltration of the ascending colon and hepatic flexure. Prominence of the wall of the descending colon. This may be due to underdistention. There is no pericolonic stranding Appendix: Can not be identified. Intraperitoneal space: Unremarkable. No free air. No significant fluid collection. Vasculature: Unremarkable. No abdominal aortic aneurysm. Lymph nodes: Unremarkable. No enlarged lymph nodes. Urinary bladder: Unremarkable as visualized. Reproductive: Apparent hysterectomy. 2.1 cm left ovarian cyst. Bones/joints: Unremarkable. No acute fracture. Soft tissues: Unremarkable. CT/CT kidney stone [id number] IMPRESSION: 1. Cholelithiasis and sludge in the gallbladder. No wall thickening and no ductal dilatation. 2. Slight distension of the proximal right ureter which appears to overlying vessel. 3. Hysterectomy. 1 cm left ovarian cyst. 4. Submucosal fatty infiltration of the ascending colon and hepatic flexure of the colon. This can be seen with previous inflammatory disease. Some prominence of the wall of the descending colon without pericolonic stranding. This may be underdistention. Correlate for any symptoms of colitis. 5. Bronchiectasis and bronchial plugging left lower lobe again seen. 6. Small hiatal hernia.
[2025-03-06 18:23] LABS: Alanine Aminotransferase 10 U/L (0-33); Albumin Level 3.9 g/dL (3.5-5.2); Alkaline Phosphatase 93 U/L (35-105); Aspartate Amino Transferase 14 U/L (0-32); Blood Urea Nitrogen 5 mg/dL (8-23); Calcium 9.0 mg/dL (8.5-10.5); Carbon Dioxide 24 mmol/L (22-29); Chloride 104 mmol/L (98-107); Creatinine Clr Calc Pharmacy 99.9411; Globulin 3.5 g/dL (1.3-4.6); Glucose 104 mg/dL (65-115); Lipase 13 U/L (13-60); Osmolality Calculated 286 mOsm/kg (285-295); Sodium 139 mmol/L (136-145); Total Protein 7.4 g/dL (6.6-8.7)
[2025-03-06 18:26] LABS: Anion Gap 14.7 (5-19); Potassium 3.7 mmol/L (3.5-5.1)
[2025-03-06] MEDS: ondansetron 2 mg/ML SDV 2 mL 4 MG IVP (18:49)
[2025-03-06] MEDS: morphine 4 mg/mL SDV 1 mL IVP (18:49)
[2025-03-06 19:57] VITALS: BP 136/71; O2SAT 98
[2025-03-06 21:28] VITALS: BP 116/67; PULSE 65; RESP 20; O2SAT 96
--- NOTE | 2025-03-08 08:17 | DCPLANNER ---
messaged gen surg for er f/u
== END 2025-03-06 21:40 | disposition home or self-care (01) ==
PROVIDERS: Emergency Provider Emergency Medicine
DX: R10.11 Right upper quadrant pain (principal); K80.20 Calculus of gallbladder without cholecystitis without obstruction; Z87.891 Personal history of nicotine dependence
CPT/HCPCS: 36415; 74176; 76705; 80053; 81003; 83690; 85025; 96374; 96375; 99285; J2270; J2405; J7030

== ENCOUNTER 2025-03-22 08:53 | Day surgery (SDC) | payer OTHER, SELFPAY ==
[2025-03-22] VITALS (22 sets, daily range): BP systolic 103–135; BP diastolic 45–78; PULSE 64–101; RESP 11–28; TEMP 36.4–36.8; O2SAT 93–99; BMI 20.8
--- NOTE | 2025-03-22 09:28 | ANES.PREANE2 ---
Pre-Anesthetic Assessment Height/Weight: Height 5 ft 8 in Weight 137 lb Temp Pulse Resp BP Pulse Ox O2 Del Method 97.5 F L 70 18 117/61 97 Room Air 03/22/25 09:10 03/22/25 09:10 03/22/25 09:10 03/22/25 09:10 03/22/25 09:10 03/22/25 09:10 Preop Diagnosis: Chronic cholelithiasis Operation Date: 03/22/25 10:30 Proposed Procedures p Laparoscopic Cholecystectomy POSSIBLE Open 23380 K80.20(Not Applicable) - Fab Russo MD Was Beta Hunter taken within 24 hours: N/A Was Clonidine taken within 24 hours: N/A Last intake: Intake Last Liquid Date 03/22/25 Last Liquid Time 06:00 Last Solid Date 03/21/25 Last Solid Time 17:00 Social Tobacco and No alcohol States she has not smoked for a few days Exam alert, oriented x 3 and regular rate & rhythm Decreased breath sounds bilaterally Airway Submandibular: within normal limits Cervical ROM: within normal limits Mallampati: Class II Dentition: partials Anesthetic Plan ASA status: 3 Anesthesia: General Other: No prior issues with anesthesia NPO since yesterday evening Patient has been dealing with gallbladder issues states that she continues to get nauseous with food, took Zofran this morning Denies any cardiac issues Current smoker Labs reviewed from 03/06/2025 and acceptable for procedure METs greater than 4 Plan for GETA Medications/Allergies Home Medications ?Medication ?Instructions ?Recorded ?Confirmed ?Last Taken ?Type alprazolam 0.5 mg tablet 0.5 mg PO PRN 01/08/24 03/22/25 03/22/25 History cetirizine 5 mg-pseudoephedrine ER 5 tab PO DAILY 01/08/24 03/22/25 03/18/25 History 120 mg tablet,extended release,12hr estradiol 1 mg tablet 1 mg PO DAILY 01/08/24 03/22/25 03/22/25 History ibuprofen 800 mg tablet 800 mg PO PRN 01/08/24 03/22/25 Unknown History omeprazole 20 mg capsule,delayed 4 mg PO DAILY 01/08/24 03/22/25 03/22/25 History release ondansetron 4 mg disintegrating 4 mg PO TID PRN nausea and 02/22/25 03/22/25 Unknown Rx tablet vomiting #30 tabs Allergies Allergy/AdvReac Type Severity Reaction Status Date / Time oxycodone Allergy ADR-Itching Verified 03/22/25 09:15 [facility] Anesthesia Social History Smoking and tobacco/nicotine status: former use of tobacco/nicotine
--- NOTE | 2025-03-22 09:46 | P.HPUD_ITS ---
Surgery/Procedure H&P Update DATE OF PROCEDURE: March 22, 2025 DATE H&P PERFORMED: 03/10/25 H&P UPDATE INFORMATION: I have reviewed H&P completed within last 30 days, I have examined patient prior to procedure, No changes to prior documentation, H&P is in [facility] EMR on date indicated and Risks and benefits of the procedure reviewed PREOP DIAGNOSIS: Chronic cholelithiasis PLANNED PROCEDURE: Operation Date: 03/22/25 10:30 Proposed Procedures p Laparoscopic Cholecystectomy POSSIBLE Open [id number] K80.20(Not Applicable) - Fab Russo MD
[2025-03-22] MEDS: ceFAZolin 2,000 mg SDV 2000 MG IVP (10:17)
[2025-03-22] MEDS: lidocaine-epi 1% 20 mL INJ 10 ML INJECTION (11:43)
[2025-03-22] MEDS: BUPivacaine 0.25% INJ 10 mL INJECTION (11:43)
--- NOTE | 2025-03-22 11:53 | P.OP_ITS ---
Operative Report Date of procedure: March 22, 2025 Pre-op diagnosis: Symptomatic cholelithiasis Post-op diagnosis: Same Post-op findings: There were adhesions from the omentum to the anterior abdominal wall at the level of the midline, there were adhesions of omentum to anterior abdominal wall and the level of the left upper quadrant, the cecum and some of the pericolonic tissue was also adhered to the right lateral abdominal wall. Procedure done: Laparoscopic cholecystectomy Specimens removed/disposition: Gallbladder Surgeon: Fab Russo MD Wash Driller: ASHLEY OR Staff Estimated blood loss: 5 Complications: none apparent Brief History: 64-year-old female with right upper quadrant abdominal pain and an ultrasound showing cholelithiasis. After discussion risk benefits decided proceed to the OR for laparoscopic possible open cholecystectomy. Procedure: Patient was brought into the OR, he was placed in a supine position. General anesthesia was given. The abdomen was prepped and draped in the usual sterile fashion. A timeout was conducted. I accessed the abdomen via a 5 mm Optiview port in the left upper quadrant. Initial pneumoperitoneum was obtained and no evidence of visceral injury during entry was noted. There was significant adhesions of omentum to anterior abdominal wall which were blocking the access to the right side of the abdomen. An additional 5 mm trocar was placed in the left flank under direct visualization. I then used a combination of blunt dissection and electrocautery to take down the adhesions, I cleared the whole midline and then I took down the adhesions all the way to the right side to allow for placement of the ports. The right colon as well as some ran pericolonic tissue was also noted to be adhered to the right lateral abdominal wall but I decided to leave this undisturbed as it did not appear to be interfering with any additional deep structures and it was outside of the operative field. At 12 mm trocar was placed in the infraumbilical position under direct visualization. Additional 5 mm trocars were placed in the epigastrium right upper quadrant and right flank under direct visualization. The gallbladder was grasped from the fundus and retracted cephalad, I then grasped the infundibulum and retracted in the inferolateral direction exposing the hepatocystic triangle. The peritoneum anterior to the hepatocystic triangle was opened with electrocautery, I carried this opening in the medial and lateral direction to the edges of the liver and then on the sides of the gallbladder to allow for better exposure. With careful blunt dissection as well as electrocautery I was able to encircle the cystic duct and artery, I also elevated lower third of the gallbladder from the liver bed, thus creating a critical view of safety. The cystic duct and artery were double clipped proximally and single clipped distally and transected. The gallbladder was removed from the liver bed using electrocautery. The gallbladder was retrieved in an Endo Catch bag via the umbilical trocar site. The liver bed and clips were inspected the area was hemostatic, there was no evidence of bile leak the clips appeared to be in good position. The infraumbilical trocar was removed and umbilical trocar site was closed with a 0 Vicryl Kenney-Ney suture passer under direct visualization. The left flank, epigastrium right upper quadrant and right flank trocars were removed under direct visualization, the left upper quadrant trocar was used to evacuate the pneumoperitoneum and subsequently removed. Local anesthesia was infiltrated. Hemostasis was achieved from the trocar sites. The wounds were closed in layers using #3-0 Vicryl for the subcutaneous tissue #4 Monocryl for the skin. At the end of the procedure all counts were correct, the patient tolerated well the procedure was transferred to the PACU in stable condition.
[2025-03-22] MEDS: fentaNYL 50 mcg/mL INJ 2mL IVP ×2 (12:23→12:32)
[2025-03-22] MEDS: HYDROmorphone 1 mg/mL INJ 1ml 0.5 MG IVP (12:42)
[2025-03-22] MEDS: ondansetron 2 mg/ML SDV 2 mL 4 MG IVP (12:47)
[2025-03-22] MEDS: HYDROcodone-acetaminophen 7.5-325 mg Tablet 1 TAB PO (13:36)
--- NOTE | 2025-03-22 14:44 | ANE.PACU2 ---
Inpatient post-anesthesia follow up: Airway intact: Yes Vital signs: Temperature 97.6 F Pulse Rate 64 Respiratory Rate 18 Blood Pressure 120/63 Pulse Oximetry 98 Oxygen Delivery Me thod Room Air Oxygen Flow Rate Fraction of Inspir ed Oxygen Hydration adequate: Yes Nausea and vomiting: No Pain level: 1 Mental status: Baseline
== END 2025-03-22 14:44 | disposition home or self-care (01) ==
PROVIDERS: PCP Family Medicine; Visit Provider Surgery
PROC: 0FT44ZZ Resection of Gallbladder, Percutaneous Endoscopic Approach (ICD-10-PCS; CPT 47562; principal; 2025-03-22 10:20)
DX: K80.10 Calculus of gallbladder with chronic cholecystitis without obstruction (principal); F17.200 Nicotine dependence, unspecified, uncomplicated; K21.9 Gastro-esophageal reflux disease without esophagitis
CPT/HCPCS: 47562; 88304; J0690; J1171; J2250; J2405; J2704; J3010; J3490; J7030; J9999

== ENCOUNTER 2025-04-20 19:12 | Emergency (ER) | payer OTHER, SELFPAY ==
[2025-04-20 19:22] VITALS: BP 117/70; PULSE 95; RESP 18; TEMP 37.1; O2SAT 99; BMI 21.2
--- OUTSIDE RECORDS SUMMARY | 2025-04-20 19:23 | XMS_ITS | Continuity of Care Document ---
Author Organization [facility], LFadiLMelissa, [facility] ([facility]) Address [address] [place] [phone] Care Team Providers Care Brick Handler Name Role Phone KEENA HAMEED Primary Care Provider Unavailabl e Assessment No assessment recorded. Plan of Treatment Reminders Order Date Submit Date Provider Last Modified By Organization Details Last Modified Time Details Appointments OFFICE VISIT 15 2025 10:00A M Keena Hameed MD Not available Not available Not available Lab None recorded. Referral gastroent erology surgery referral [email or web address] Nirav Leon MD, [address], [place], [address], 03/16/2025 11:19:03 Procedures None recorded. Surgeries None recorded. Imaging US, gallbladd er [id number] ([facility]), [address] [place], [address], 03/02/2025 16:52:58 Medication Orders None recorded. Patient TargetsNo targets recorded. Patient InstructionsNo instructions recorded. Reason for Referral Gastroenterology Surgery Ref erral for Abdominal pain Referring Physician: Keena Hameed, Family Medicine, Encounter Date: 03/02/2025 Problems Name Problem SNOMED Code Status Onset Date Resolution Date Notes Provider Name and Address Organization Details Recorded Time Irritabl e bowel syndrome 29859749 Active 2022 IBS; 06/18/19 23 8:56AM by Kaya Larose, Office Visit; Promoted ; acuity set as *; JESUS hannon, [facility] 16:51:20 Urticari a 125160926 Active 2022 Urticari a; 06/18/19 8:56AM by Kaya Larose, Office Visit; Promoted ; acuity set as *; JESUS hannon, [facility] 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 16:51:30 Generali zed anxiety disorder 81235189 Active 2022 JESUS hannon [facility] 5 16:51:20 Thoracic back pain 683509217 Active 2022 JESUS hannon, [facility] 5 16:51:20 Chronic osteoart hritis 95137920 [facility] 16:51:20 Pain of multiple joints 93027772 Active 2023 JESUS hannon, [facility] 16:51:20 Compress ion fracture of thoracic vertebra 98234791487 04 Completed 202309/30/2024 JESUS hannon [facility] 16:51:30 Allergic rhinitis 03483096 Active 2024 Keena Hameed MD [address] [place] [address], [phone] , [facility] 17:14:27 Abdomina l pain 25486520 Active 2024 Keena Hameed MD [address] [place] [address], [phone], [facility] 5 15:35:15 Periumbi lical pain 566504186 Active 2024 Keena Hameed MD [address] [place] [address], [address] [place] [address] 5, [facility] 5 11:44:37 Gastroes ophageal reflux disease 985377770 Active 2024 Keena Hameed MD [address] [place] [address], [address] [place] [address] 5, [facility] 5 11:44:48 Finding of quality of voice 272242825 Active 2024 Keena Hameed MD [address] [place] [phone], [facility] 5 11:47:09 Problem Notes None recorded. Procedures Surgical History Date Name Laterality Status Provider Name and Address Organization Details Recorded Time 03/22/20 25 cholecystectomy completed KAYA LAROSE [facility] 04/07/2025 11:22:09 Imaging Results None recorded. Procedure Notes None recorded. Medical Equipment None Reported. Allergies Allergen ID Allergen Name Allergen Category Reaction Reaction Severity Criticality Documentation Date Start Date Code Code System Note Provider Name and Address Organization Details Recorded Time 77812 cyclobenz aprine hydrochlo ride medicatio n Not available Not available Not available 12/15/2022 28483 RxNorm Comme nt: Recor ded 06/18 8:56A M by Kayden Law i Visit ; Elba domínguez; Ubaldo valenzuela ce: *; ; JESUS hannon, [facility] 4 11:36:48 04729 escitalop [place] Not available Not available Not available Not available 12/15/2022 41458 8 RxNorm Comme nt: Recor ded 06/18 8:56A M by Brand i Norri s, Offic e Visit ; Elba domínguez; Ubaldo valenzuela ce: *; ; JESUS BETHEA riddhi, [facility] 4 11:36:49 72505 acetamino phen / oxycodone medicatio n Not available Not available Not available 12/15/2022 14413 3 RxNorm Comme nt: Recor ded 06/18 8:56A M by Brand i Norri s, Offic e Visit ; Promo catrachita; Ubaldo valenzuela ce: *; ; JESUS ANGELICAROHAN hannon, [facility] 4 11:36:50 Medications Name Sig Start Date Stop Date Status Note LastModified by Organization Details LastModified Time celecoxib 200 mg capsule take 1 capsule [...] Not Available Not Available No t Available hydrocodo ne 5 mg-acetam inophen 325 mg tablet TAKE 1 TABLET BY MOUTH EVERY 6 HOURS NEEDED FOR PAIN 04/07 completed Not Available Not Available Not Available fluoroura cil 5 % topical cream apply thin layer TO concerni ng lesions TWICE DAILY FOR 14 DAYS 03/26 completed Not Available Not Available Not Available Diflucan 150 mg tablet Take 1 tablet every day by oral route as directed for 2 days. 04/01 completed Not Available Not Available Not Available sulfameth oxazole 800 mg-trimet hoprim 160 mg tablet TAKE ONE TABLET BY MOUTH TWICE DAILY 03/26 completed Not Available Not Available Not Available alprazola m 0.5 mg tablet TAKE 1 TABLET BY MOUTH THREE TIMES DAILY NEEDED MUST LAST 30 DAYS active Not Available Not Available No t Available estradiol 1 mg tablet TAKE 1 TABLET BY MOUTH EVERY DAY active Not Available Not Available No t Available hydrocodo ne 7.5 mg-acetam inophen 325 mg tablet TAKE ONE TABLET BY MOUTH EVERY 8 HOURS NEEDED FOR PAIN for FIVE DAYS 04/07 completed Not Available Not Available Not Available ivermecti n 6 mg tablet TAKE 2 TABLETS BY MOUTH single DOSE and THEN take TWO tablets a week LATER 03/02 completed Not Available Not Available Not Available omeprazol e 20 mg capsule,d elayed release TAKE 1 CAPSULE BY MOUTH EVERY DAY active Not Available Not Available No t Available polyethyl dacia glycol 3350 17 gram/dose oral powder DISSOLVE 17grams in liquid AND drink DAILY for FIVE DAYS 04/07 completed Not Available Not Available Not Available levofloxa ruiz 500 mg tablet TAKE 1 TABLET BY MOUTH every 24 hours FOR uti for 7 days 10/15 completed Not Available Not Available Not Available ondansetr on 4 mg disintegr ating tablet DISSOLVE ONE TABLET in MOUTH THREE TIMES DAILY NEEDED FOR NAUSEA AND VOMITING FOR 3 DAYS active Not Available Not Available No t Available fluticaso ne propionat e 50 mcg/actua tion nasal spray,ten pension [place] 2 sprays every day by intranas al route. 2024 active Not Available Not Available Not Avai lable amoxicill in 875 mg-potass ium clavulana te 125 mg tablet TAKE ONE TABLET BY MOUTH TWICE DAILY for THREE DAYS 04/07 completed Not Available Not Available Not Available neomycin 3.5 mg/g-poly myxin B 10,000 unit/g-de [...] Tablet; Not Available Not Available Not Available All Day Allergy-D 5 mg-120 mg tablet,ex tended release TAKE 1 TABLET BY MOUTH TWICE DAILY NEEDED active Not Available Not Available No t Available ivermecti n 1 % topical cream apply topicall y ONCE daily TO face active Not Available Not Available No t Available Vitals Date Recorded Body height Body mass index (BMI) Body weight Systolic And Diastolic Provider Name and Address Organization Details Last Updated DateTime 03/02/2025 168.91 cm 23.8 kg/m2 47400.86 g 120/70 mm[Hg] KAYA LAROSE [facility] 03/02/2025 15:03:00 Social History Question Answer Notes LastModified by Organizat ion Details LastModified Time Tobacco Smoking Status Former Smoker JESUS VONALLMEN null, [facility] 03/26/2023 11:41:15 What Was The Date [...] Recorded Time Tdap 8 completed Not Available [facility] 12/15/2022 02:38:59 zoster recombinant 5 completed Not Available [facility] 04/07/2025 11:18:42 Tdap 3 completed JILL DOWNEY PA-C [address] [place] [address], [phone], [facility] 04/05/2023 17:17:28 Past Encounters Encounter ID Performer Location Encounter Start Date Encounter Closed Date Diagnosis/Indication Diagnosis SNOMED-CT Code Diagnosis ICD10 Code Diagnosis IMO Codes Diagnosis Note [id number] MARA MEDINA [facility] ([facility]) [address] [place] [phone] 02/22/2025 15:28:39 02/22/2025 16:05:03 Epigastric pain 51178126 R10.13 [id number] Sent to ER for further evaluation and treatment. Report to ER staff Violette by Carmen MEJÍA. Patient wishes to go to ER per private vehicle. [id number] Keena Hameed MD [facility] ([facility]) [address] [place] [phone] 03/02/2025 14:40:47 03/02/2025 15:54:04 Abdominal pain 15040017 R10.9 RUQ pain, strongly suspect gallbladde r related problems with symptoms and exam including positive Avina's sign. Health Concerns Section Related Observation LastModified by Organization Detai ls LastModified Time None Recorded Concern Status LastModified by Organization Details LastModified Time None Recorded Payers Encounter Date Sequence Insurance Name Policy Number Policy Duran Covered Member ID Duran Member ID Guarantor Name 03/02/[address] [place] [address] [employer] [id number] Betzy Breen [id number] Betzy Breen Notes Date Note Type Note [...] and negative cardiac workup. Keena Hameed MD [address] [place] [address], [phone], [facility], [place] 03/02/2025 15:41:31 OBGyn Episode No OBEpisode recorded.
--- OUTSIDE RECORDS SUMMARY | 2025-04-20 19:23 | XMS_ITS | Clinical Summary ---
Author Organization [facility] Mauricio ortez [place] Address [address] [place] [address] Phone Care Team Providers Care Guide Rail Cleaner Name Role Phone Unavailable Primary Care Provider [...] Encounters Date Type Department Care Team Description 04/06/2025 External Device Data [facility] ABSTRACTION Provider, Abstract 03/17/2025 External Device Data [facility] ABSTRACTION Provider, Abstract 03/17/2025 External Device Data [facility] ABSTRACTION Provider, Abstract 03/04/2025 Orders Only [facility] [address] [place] [id number] Niall Hameed MD Abdominal pain, unspecified abdominal location (Primary Dx) from Last 3 Months Social History Tobacco [...] Comments Blood Pressure 120/72 05/07/2024 10:01 AM NURSE AUDITOR Pulse 70 05/07/2024 10:01 AM NURSE AUDITOR Temperature - - Respiratory Rate - - Oxygen Saturation 98% 05/07/2024 10:01 AM NURSE AUDITOR Inhaled Oxygen Concentration - - Weight 67.1 kg (148 lb) 05/07/2024 10:01 AM NURSE AUDITOR Height 172.7 cm (5' 8 ) 05/07/2024 10:01 AM NURSE AUDITOR Body Mass Index 22.5 05/07/2024 10:01 AM NURSE AUDITOR Plan of Treatment Health Maintenance Due Date [...] (1 - 1-dose 75+ series) [address] [place] [address] [facility]
--- OUTSIDE RECORDS SUMMARY | 2025-04-20 19:23 | XMS_ITS | Data Portability ---
Author Organization [facility], MelissaFadi, [facility] Address [address] [place] [address] Care Team Providers Care Micro Photographer Name Role Phone KEENA HAMEED Primary Care Provider Unavailabl e Assessment No assessment recorded. Plan of Treatment Reminders Order Date Submit Date Provider Last Modified By Organization Details Last Modified Time Details Appointments OFFICE VISIT 15 2025 10:00A M Keena Hameed MD Not available Not available Not available Lab None recorded. Referral gastroent erology surgery referral [email or web address] Nirav Leon MD, [address], [place], [address], 03/16/2025 11:19:03 Procedures None recorded. Surgeries None recorded. Imaging US, gallbladd er 2024 sandip [facility] ([facility]), [address] [place], [address], 03/02/2025 16:52:58 Medication Orders fluticaso ne propionat e 50 mcg/actua tion nasal spray,ten pension 2024 [facility] [place], [address] [place] [address], [address], 10/07/2024 17:09:57 alprazola m 0.5 mg tablet 2024 [facility] [place], [address] [place] [address], [address], 11/27/2024 13:09:40 Patient TargetsNo targets recorded. Patient InstructionsNo instructions recorded. Reason for Referral Gastroenterology Surgery Ref erral for Abdominal pain Referring Physician: Keena Hameed [facility] Medicine, Encounter Date: 03/02/2025 Results Created Date Observation Date Name Description Value Unit Range Abnormal Flag Note LastModifiedBy Organization Detail LastModifiedTime 01/17/20 25 01/16/2025 COLOG UARD cologuard result reportable Sample Could Not Be Proces sed n/a The Colog uard (TM) test was assig romi to this speci men. An empty colle ction kit was recei garrison in the labor atory . The patie nt will be conta cted to initi ate a new sampl e colle ction . Not Available [facility] [address], [place], [address], 01/16/2025 11:31:22 Result Notes None recorded. Problems Name Problem SNOMED Code Status Onset Date Resolution Date Notes Provider Name and Address Organization Details Recorded Time Irritabl e bowel syndrome 66930869 Active 2022 IBS; 06/18/19 23 8:56AM by Kaya Nolan, Office Visit; Promoted ; acuity set as *; JESUS hannon [facility] 5 16:51:20 Urticari a 460390684 Active 2022 Urticari a; 06/18/19 23 8:56AM by Kaya Nolan, Office Visit; Promoted ; acuity set as *; JESUS hannon [facility] 5 16:51:20 Bacteria l intestin al infectio us disease 829069242 Completed 202209/30/2024 Helicoba cter Pylori Infectio n; 2006.; 06/18/19 23 8:56AM by Kaya Nolan, Office Visit; Promoted ; acuity set as *; JESUS hannon [facility] 5 16:51:30 Generali zed anxiety disorder 93300874 Active 2022 JESUS hannon, [facility] 5 16:51:20 Thoracic back pain 973434097 Active 2022 JESUS hannon, [facility] 5 16:51:20 Chronic osteoart hritis 80887375 Active 2023 JESUS hannon, [facility] 5 16:51:20 Pain of multiple joints 69996399 Active 2023 JESUS hannon, [facility] 5 16:51:20 Compress ion fracture of thoracic vertebra 51133346936 04 Completed 202309/30/2024 JESUS hannon, [facility] 5 16:51:30 Allergic rhinitis 31085648 Active 2024 Keena Hameed MD [address] [place] [address], [address], [place] [facility] 5 17:14:27 Abdomina l pain 04781755 Active 2024 Keena Hameed MD [address] [place] [address], [address], [facility] 5 15:35:15 Periumbi lical pain 746606781 Active 2024 Keena Hameed MD [address] [place] [address], [phone], [place] [facility] 5 11:44:37 Gastroes ophageal reflux disease 365216737 Active 2024 Keena Hameed MD [address] [place] [address], [address], [place] [facility] 5 11:44:48 Finding of quality of voice 189420399 Active 2024 Keena Hameed MD [address] [place] [address], [phone] , [facility] 11:47:09 Problem Notes None recorded. Procedures Surgical History Date Name Laterality Status Provider Name and Address Organization Details Recorded Time 03/22/20 25 cholecystectomy completed KAYA NOLAN [facility] 04/07/2025 11:22:09 Imaging Results None recorded. Procedure Notes None recorded. Medical Equipment None Reported. Allergies Allergen ID Allergen Name Allergen Category Reaction Reaction Severity Criticality Documentation Date Start Date Code Code System Note Provider Name and Address Organization Details Recorded Time 69102 cyclobenz aprine hydrochlo ride medicatio n Not available Not available Not available 12/15/2022 81037 RxNorm Comme nt: Recor ded 06/18 8:56A M by Mickey Mchugh s, Offic e Visit ; Promo catrachita; Ubaldo valenzuela ce: *; ; JESUS hannon, [facility] 4 11:36:48 36175 escitalop [place] Not available Not available Not available Not available 12/15/2022 70791 8 RxNorm Comme nt: Recor ded 06/18 8:56A M by Mickey Mchugh s, Offic e Visit ; Promo catrachita; Signedin valenzuela ce: *; ; JESUS hannon [facility] 4 11:36:49 43575 acetamino phen / oxycodone medicatio n Not available Not available Not available 12/15/2022 22834 3 RxNorm Comme nt: Recor ded 06/18 8:56A M by Mickey Mchugh s, Offic e Visit ; Promo catrachita; Signi ficoxana ce: *; ; JESUS hannon [facility] 4 11:36:50 Medications Name Sig Start [...] e 50 mcg/actua tion nasal spray,ten pension [employer] 2 sprays every day by intranas al [...] Updated DateTime 09/30/2024 168.91 cm 24.2 kg/m2 78798.04 g 64 /min 118/63 mm[Hg] JESUS BETHEA [facility] 16:56:13 Date Recorded Body mass index (BMI) Body weight Oxygen saturation Heart rate Respiratory rate Body temperature Systolic And Diastolic Provider Name and Address Organization Details Last Updated DateTime 5 24.6 kg/m2 14093.8 2 g 97 % 76 /min 18 /min 97 [degF] 122/70 mm[Hg] PASTORA STARR [facility] 13:45:43 Date Recorded Body height Provider Name an d Address Organization Details Last Updated DateTime 10/28/2024 168.91 cm June Morales [facility] 10/28/2024 13:41:33 Date Recorded Body height Body mass index (BMI) Body weight Body temperature Oxygen saturation Heart rate Systolic And Diastolic Provider Name and Address Organization Details Last Updated DateTime 168.91 cm 24.6 kg/m2 42033.8 2 g 97.9 [degF] 94 % 69 /min 180/88 mm[Hg] Carmen Aceves [facility] 15:38:53 Date Recorded Body height Body mass index (BMI) Body weight Systolic And Diastolic Provider Name and Address Organization Details Last Updated DateTime 03/02/2025 168.91 cm 23.8 kg/m2 86792.86 g 120/70 mm[Hg] [facility] 03/02/2025 15:03:00 Date Recorded Body height Body mass index (BMI) Body weight Oxygen saturation Heart rate Systolic And Diastolic Provider Name and Address Organization Details Last Updated DateTime 168.91 cm 22.4 kg/m2 32253.5 2 g 94 % 78 /min 100/72 mm[Hg] [facility] 11:27:47 Social History Question Answer Notes LastModified by Organizat ion Details LastModified Time Tobacco Smoking Status Former Smoker JESUS hannon, [facility] 03/26/2023 11:41:15 What Was The Date [...] Recorded Time Tdap 8 completed Not Available [facility] 12/15/2022 02:38:59 zoster recombinant 5 completed Not Available [facility] 04/07/2025 11:18:42 Tdap 3 completed JILL DOWNEY PA-C [address] [place] [address], [phone], [facility], [place]. 04/05/2023 17:17:28 Past Encounters Encounter ID Performer Location Encounter Start Date Encounter Closed Date Diagnosis/Indication Diagnosis SNOMED-CT Code Diagnosis ICD10 Code Diagnosis IMO Codes Diagnosis Note [id number] Keena Hameed MD [facility] ([facility]) [address] [place] [address] 03/26/2023 11:02:08 03/26/2023 15:32:09 Irritable bowel syndrome 14330801 K58.9 stable at this time Generalize d anxiety disorder 12689318 F41.1 stable. Active or passive immunization 783461577 Z23 Adult heal th examination 871061493 Z00.00 Thoracic back pain 87085 8004 M54.6 [id number] JILL DOWNEY PA-C [facility] ([facility]) [address] [place] [address] 04/05/2023 10:25:47 04/05/2023 18:41:52 Pain of left hand 9794778894 31456 M79.642 no fx seen.able to return to work. Laceration of finger of left hand 5870692221 1503126 S61.227A see exam. watch for infection. Clean daily and keep covered. [id number] MARA MEDINA [facility] ([facility]) [address] [place] [address] 08/03/2023 13:56:15 08/03/2023 15:12:05 Acute urinary tract infection 141108834 N39.0 [id number] Keena Hameed MD [facility] ([facility]) [address] [place] [address] 08/13/2023 11:44:22 08/13/2023 17:40:05 Dysuria 70879745 R30.0 Chronic osteoarthritis 26067379 M19.90 [id number] Keena Hameed MD [facility] ([facility]) [address] [place] [address] 10/16/2023 10:41:26 10/16/2023 13:05:41 Generalized anxiety disorder 13383743 F41.1 stable. Irritable bowel syndrome 44260282 K58.9 stable at this time Thoracic back pain 45317 8004 M54.6 stable Pain of mu ltiple joints 36682725 M25.50 Adult heal th examination 524067385 Z00.00 [id number] Keena Hameed MD [facility] ([facility]) [address] [place] [address] 5 04/10/2024 14:39:14 04/10/2024 15:51:18 Urticaria 007572257 L50.9 Pain of mu ltiple joints 43748001 M25.50 Rheumatolo gist appt. in April in April. Compressio n fracture of thoracic vertebra 6131978286 104 M48.54XD history of T8 compressio n fracture with continued pain. [id number] Keena Hameed MD [facility] ([facility]) [address] [place] [address] 09/30/2024 15:53:13 10/03/2024 06:55:51 Urticaria 506754868 L50.9 Generalize d anxiety disorder 64684405 F41.1 stable. Thoracic back pain 79659 8004 M54.6 stable Pain of mu ltiple joints 53173557 M25.50 stable, Rheumatolo gist felt false positive BRIAN Allergic rhinitis 921302 04 J30.9 4311045 [id number] JILL DOWNEY PA-C [facility] ([facility]) [address] [place] [address] 10/28/2024 13:39:14 10/28/2024 15:22:06 Insect sting 139754064 T63.481A W57.XXXA 28940796 no evidence of infection. large amnt of bruising associated with in.Low suspicion of DVT. Varicose v eins of lower extremity 65568536 I83.944 0396977 mild edema L>R [id number] MARA MEDINA [facility] ([facility]) [address] [place] [address] 02/22/2025 15:28:39 02/22/2025 16:05:03 Epigastric pain 42461427 R10.13 30351 Sent to ER for further evaluation and treatment. Report to ER staff [facility] by Carmen MEJÍA. Patient wishes to go to ER per private vehicle. [id number] Keena Hameed MD [facility] ([facility]) [address] [place] [address] 03/02/2025 14:40:47 03/02/2025 15:54:04 Abdominal pain 44831075 R10.9 RUQ pain, strongly suspect gallbladde r related problems with symptoms and exam including positive Avina's sign. [id number] Keena Hameed MD [facility] ([facility]) [address] [place] [address] 04/07/2025 11:16:25 04/07/2025 11:53:45 Chronic osteoarthritis 20975750 M19.90 Periumbilical pain 48512 3005 R10.33 764074 post op pain. Improving. Gastroesop hageal reflux disease 682872803 K21.9 97174165 stable. Finding of quality of voice 697465058 R49.0 5594951 slow worsening. Will monitor. Patient declines ST eval or ENT referral. Physical examination 588 0005 Z00.00 02909095 doing well overall. Discussed mammogram and colon screening. Health Concerns Section Related Observation LastModified by Organization Detai ls LastModified Time None Recorded Concern Status LastModified by Organization Details LastModified Time None Recorded Advance Directives Directive None Recorded Payers Insurance Date Sequence Insurance Name Policy Number Policy Duran Covered Member ID Duran Member ID Guarantor Name 03/02/2025 JUAN R BECK [id number] Betzy Breen 02/23/2025 1 [employer] [id number] Betzy Breen [id number] Betzy Breen 04/06/[address] [employer] [id number] Betzy Breen [id number] Betzy Breen Notes Date Note Type Note Provider Name and Address Organization Details Recorded Time 10/28/2024 text/html Skin LesionRepor catrachita by PatientHPIFor location, patient reportsleg. For quality, patient reportsitchy. For severity, patient reportsmoderate. For duration, patient reports3 days. For timing, patient reportsabruptandconsta nt. got insect bite on back of right knee and it instantly swelled up and bruised, worried becasue brother had blood clots. JILL DOWNEY PA-C [address] [place], [address], [facility] 10/28/2024 14:09:41 02/22/2025 text/html ROS as noted in the HPI walk inIncreasing chest pain, epi-gastric hurting through to back with band radiation to back, fatigue and nausea. Patient states that she took omeprazole this AM and also tums about an hour ago with no relief. Denies shortness of breath. MARA MEDINA [address] [place], [address], [facility] 02/22/2025 15:57:03 03/02/2025 text/html Abdominal PainRe ported [...] and negative cardiac workup. Keena Hameed MD [address] [place] [address], [address], [facility] 03/02/2025 15:41:31 04/07/2025 text/html Generalized Anxi ety DisorderReported by PatientHPIFor associated symptoms, patient reportsdifficulty concentrating (at times.)andexcess anxietybut reportsno difficulty controlling worry. For severity, patient reportsmild. Had her gallbladder removed on 03/22/[address] Rodríguez, doing good, still having tenderness.Has noticed her voice being a little shaky that has been going on for a while now. She is here for a wellness exam. Keena Hameed MD [address] [place] [address], [phone], [facility], [place] 04/07/2025 11:54:25 OBGyn Episode No OBEpisode recorded.
--- OUTSIDE RECORDS SUMMARY | 2025-04-20 19:23 | XMS_ITS | Continuity of Care Document ---
Author Organization [facility] [place] Michele, [facility] ([facility]) Address [address] [facility] [place] [address] Care Team Providers Care Applications Analyst Name Role Phone KEENA HAMEED Primary Care [...] Details Recorded Time Irritabl e bowel syndrome 29075284 Active 2022 IBS; 06/18/19 8:56AM by Kaya Larose, Office Visit; Promoted ; acuity set as *; [facility] 16:51:20 Urticari a 077586548 Active 2022 Urticari a; 06/18/19 23 8:56AM by Kaya Larose, Office Visit; Promoted ; acuity set as *; [facility] 16:51:20 Bacteria l intestin al infectio us disease 666042543 Completed 202209/30/2024 Helicoba cter Pylori Infectio n; 2006.; 06/18/19 23 8:56AM by Kaya Larose, Office Visit; Promoted ; acuity set as *; JESUS hannon, [facility] 5 16:51:30 Generali zed anxiety disorder 00262919 Active 2022 JESUS hannon, [facility] 5 16:51:20 Thoracic back pain 173400458 Active 2022 JESUS BETHEA riddhi, [facility] 5 16:51:20 Chronic osteoart hritis 10703629 Active 2023 JESUS hannon, [facility] 5 16:51:20 Pain of multiple joints 38355022 Active 2023 JESUS BETHEA riddhi, [facility] 5 16:51:20 Compress ion fracture of thoracic vertebra 12835253794 04 Completed 202309/30/2024 JESUS BETHEA riddhi, [facility] 5 16:51:30 Allergic rhinitis 50728115 Active 2024 Keena Hameed MD [address] [place] [address], [address] , [facility] 17:14:27 Abdomina l pain 38272756 Active 2024 Keena Hameed MD [address] [place] [address], [address], [facility] 5 15:35:15 Periumbi lical pain 899707002 Active 2024 Keena Hameed MD [address] [place] [address], [address], [facility] 5 11:44:37 Gastroes ophageal reflux disease 839234381 Active 2024 Keena Hameed MD [address] [place], [address], [facility] 5 11:44:48 Finding of quality of voice 820514093 Active 2024 Keena Hameed MD [address] [place], [address], [facility] 5 11:47:09 Problem Notes None recorded. Procedures Surgical History Date Name Laterality Status Provider Name and Address Organization Details Recorded Time 03/22/20 25 cholecystectomy completed KAYADorene LAROSE [facility] 04/07/2025 11:22:09 Imaging Results None recorded. Procedure Notes None recorded. Medical Equipment None Reported. Allergies Allergen ID Allergen Name Allergen Category Reaction Reaction Severity Criticality Documentation Date Start Date Code Code System Note Provider Name and Address Organization Details Recorded Time 89899 cyclobenz aprine hydrochlo ride medicatio n Not available Not available Not available 12/15/2022 24010 RxNorm Comme nt: Recor ded 06/18 8:56A M by Brand i Norri s, Offic e Visit ; Promo catrachita; Signi fican ce: *; ; JESUS hannon, [facility] 4 11:36:48 00451 escitalop [place] Not available Not available Not available Not available 12/15/2022 42376 8 RxNorm Comme nt: Recor ded 06/18 8:56A M by Brand i Norri s, Offic e Visit ; Promo catrachita; Signi fican ce: *; ; JESUS hannon [facility] 4 11:36:49 64296 acetamino phen / oxycodone medicatio n Not available Not available Not available 12/15/2022 74024 3 RxNorm Comme nt: Recor ded 06/18 8:56A M by Brand i Norri s, Offic e Visit ; Promo catrachita; Signi fican ce: *; ; JESUS SALASKINGSLEY riddhi, [facility], L[facility]illip 4 11:36:50 Medications Name Sig Start Date [...] 50 mcg/actua tion nasal spray,ten pension [place] 2 sprays every day by intranas al [...] Last Updated DateTime 168.91 cm 24.6 kg/m2 29892.8 2 g 97.9 [degF] 94 % 69 /min 180/88 mm[Hg] Carmen Aceves [facility] 15:38:53 Social History Question Answer Notes LastModified by Organizat ion Details LastModified Time Tobacco Smoking Status Former Smoker JESUS hannon, [facility] 03/26/2023 11:41:15 What Was The Date [...] Recorded Time Tdap 8 completed Not Available [facility] 12/15/2022 02:38:59 zoster recombinant 5 completed Not Available [facility] 04/07/2025 11:18:42 Tdap 3 completed JILL DOWNEY PA-C [address] [place], [address], [facility], [place] 04/05/2023 17:17:28 Past Encounters Encounter ID Performer Location Encounter Start Date Encounter Closed Date Diagnosis/Indication Diagnosis SNOMED-CT Code Diagnosis ICD10 Code Diagnosis IMO Codes Diagnosis Note [id number] MARA MEDINA [facility] ([facility]) [address] [place] [address] 02/22/2025 15:28:39 02/22/2025 16:05:03 Epigastric pain 46697573 R10.13 87019 Sent to ER for further evaluation and [...] Member ID Guarantor Name 02/22/2025 1 MADINA [id number] Betzy Breen [id number] Betzy Breen Notes Date Note Type [...] Denies shortness of breath. MARA MEDINA [address] [place], [address], [facility], [place] 02/22/2025 15:57:03 OBGyn Episode No OBEpisode recorded.
--- OUTSIDE RECORDS SUMMARY | 2025-04-20 19:23 | XMS_ITS | Continuity of Care Document ---
Author Organization [facility] Kendall Michele, [place] ([facility]) Address [address] [place] [address] Care Team Providers Care Citrix Engineer Name Role Phone KEENA HAMEED Primary Care [...] Details Recorded Time Irritabl e bowel syndrome 03147415 Active 2022 IBS; 06/18/19 8:56AM by Kaya Larose, Office Visit; Promoted ; acuity set as *; [facility] 16[facility]20 Urticari a 078792880 Active 2022 Urticari a; 06/18/19 23 8:56AM by Kaya Larose, Office Visit; Promoted ; acuity set as *; [facility] 16:51:20 Bacteria l intestin al infectio us disease 916021066 Completed 202209/30/2024 Helicoba cter Pylori Infectio n; 2006.; 06/18/19 23 8:56AM by Kaya Larose, Office Visit; Promoted ; acuity set as *; JESUS hannon, [facility] 5 16:51:30 Generali zed anxiety disorder 11088321 Active 2022 JESUS hannon, [facility] 5 16:51:20 Thoracic back pain 103402087 Active 2022 JESUS BETHEA riddhi, [facility] 5 16:51:20 Chronic osteoart hritis 89151936 Active 2023 JESUS hannon, [facility] 5 16:51:20 Pain of multiple joints 92118910 Active 2023 JESUS BETHEA riddhi, [facility] 5 16:51:20 Compress ion fracture of thoracic vertebra 40582199790 04 Completed 202309/30/2024 JESUS BETHEA riddhi, [facility] 5 16:51:30 Allergic rhinitis 06534442 Active 2024 Keena Hameed MD [address] [place] [address], [phone] , [facility] 17:14:27 Abdomina l pain 99356283 Active 2024 Keena Hameed MD [address] [place] [address], [phone], [facility] 5 15:35:15 Periumbi lical pain 555208357 Active 2024 Keena Hameed MD [address] [place] [address], [phone], [facility] 5 11:44:37 Gastroes ophageal reflux disease 005794053 Active 2024 Keena Hameed MD [address] [place], [phone], [facility] 5 11:44:48 Finding of quality of voice 400512603 Active 2024 Keena Hameed MD [address] [place], [phone], [facility] 5 11:47:09 Problem Notes None recorded. [...] Name and Address Organization Details Recorded Time 96105 cyclobenz aprine hydrochlo ride medicatio n Not available Not available Not available 12/15/2022 41448 RxNorm Comme nt: Recor ded 06/18 8:56A M by Brand i Norri s, Offic e Visit ; Promo catrachita; Signi fican ce: *; ; JESUS hannon, [facility] 4 11:36:48 97357 escitalop [place] Not available Not available Not available Not available 12/15/2022 36210 8 RxNorm Comme nt: Recor ded 06/18 8:56A M by Brand i Norri s, Offic e Visit ; Promo catrachita; Signi fican ce: *; ; JESUS hannon [facility] 4 11:36:49 89375 acetamino phen / oxycodone medicatio n Not available Not available Not available 12/15/2022 08581 3 RxNorm Comme nt: Recor ded 06/18 [...] e 50 mcg/actua tion nasal spray,ten pension Mathews 2 sprays every day by intranas al [...] Details Last Updated DateTime 5 168.91 cm 22.4 kg/m2 07741.5 2 g 94 % 78 /min 100/72 mm[Hg] KAYA LAROSE [facility] 11:27:47 Social History Question Answer Notes [...] Recorded Time Tdap 8 completed Not Available [facility] 12/15/2022 02:38:59 zoster recombinant 5 completed Not Available [facility] 04/07/2025 11:18:42 Tdap 3 completed JILL DOWNEY PA-C [address] [place], [phone], [facility], [facility] 04/05/2023 17:17:28 Past Encounters Encounter ID Performer Location Encounter Start Date Encounter Closed Date Diagnosis/Indication Diagnosis SNOMED-CT Code Diagnosis ICD10 Code Diagnosis IMO Codes Diagnosis Note [id number] Keena Hameed MD [facility] ([facility]) [address] [place] [address] 04/07/2025 11:16:25 04/07/2025 11:53:45 Chronic osteoarthritis 96387943 M19.90 Periumbilical pain 07604 3005 R10.33 055603 post op pain. Improving. Gastroesop hageal reflux disease 756310256 K21.9 51701914 stable. Finding of quality of voice 550480159 R49.0 9800880 slow worsening. Will monitor. Patient declines ST eval or ENT referral. Physical examination 588 0005 Z00.00 [id number] doing well overall. Discussed mammogram and colon screening. Health Concerns Section Related Observation LastModified by Organization Detai ls LastModified Time None Recorded Concern Status LastModified by Organization Details LastModified Time None Recorded Payers Encounter Date Sequence Insurance Name Policy Number Policy Duran Covered Member ID Duran Member ID Guarantor Name 04/07/[address] [place] [address] [employer] ([employer] [id number] Betzy Breen [id number] Betzy Breen Notes Date Note Type Note Provider Name and Address Organization Details Recorded Time 04/07/2025 text/html Generalized Anxi ety DisorderReported by [...] for a wellness exam. Keena Hameed MD [address] [place] [address], [phone], [facility], [facility] 04/07/2025 11:54:25 OBGyn Episode No OBEpisode recorded.
[2025-04-20 21:00] VITALS: BP 149/91; PULSE 93; O2SAT 94
--- NOTE | 2025-04-20 21:19 | CTR_ITS ---
PROCEDURE INFORMATION: Exam: CT Abdomen And Pelvis Without Contrast Exam date and time: 04/20/2025 9:42 PM Age: 64 years old Clinical indication: Abdominal pain; Flank; Left; Additional info: Left back/flank pain TECHNIQUE: Imaging protocol: Computed tomography of the abdomen and pelvis without contrast. Radiation optimization: All CT scans at this facility use at least one of these dose optimization techniques: automated exposure control; mA and/or kV adjustment per patient size (includes targeted exams where dose is matched to clinical indication); or iterative reconstruction. COMPARISON: CT kidney stone [id number] 03/06/2025 6:20 PM RADIATION DOSE METRICS: Total DLP (mGy-cm): 381.27 FINDINGS: Lungs: Left lower lobe bronchial wall thickening, mucoid impaction and associated bronchovascular consolidation/ground-glass opacity. Pleural spaces: Trace left pleural effusion is present with associated atelectasis. Diaphragm: A small hiatal hernia is present. Liver: The liver is otherwise within normal limits. Hepatic granulomas are present, likely sequela of prior infection or granulomatous changes. Gallbladder and biliary ducts: The gallbladder is surgically absent. No intra or extrahepatic bile duct dilatation is noted. Pancreas: Normal. No ductal dilation. Spleen: Parenchymal calcifications are seen throughout the spleen, likely reflecting prior granulomatous changes. The spleen is otherwise normal. Adrenal glands: Normal. No mass. Kidneys and ureters: Normal. No hydronephrosis. Stomach and bowel: Unremarkable. No obstruction. No mucosal thickening. Appendix: The appendix is normal. Intraperitoneal space: Unremarkable. No free air. No significant fluid collection. Vasculature: Mild atherosclerosis of the aorta and its major branching vessels is noted. Lymph nodes: Unremarkable. No enlarged lymph nodes. Urinary bladder: Unremarkable as visualized. Reproductive: The uterus is surgically absent. Bones/joints: Schmorl's nodes are present. Stable benign-appearing 1.2 cm right iliac wing lesion with thin sclerotic margin and narrow zone of transition. Soft tissues: Soft tissue changes from midline laparotomy are noted. CT/CT kidney stone [id number] IMPRESSION: 1. Left lower lobe bronchial wall thickening, mucoid impaction and associated bronchovascular consolidation/ground-glass opacity. Findings are suggestive of distal small airways disease, consider chronic aspiration. 2. Trace left pleural effusion. 3. No findings of obstructive uropathy.
--- NOTE | 2025-04-20 21:20 | ED_ITS ---
HPI - Back Pain/Injury 2 General: Chief Complaint: Back Pain/Injury Stated Complaint: Left Side Ribs and Lower back Pain Time Seen by Provider: 04/20/25 20:43 Source: patient Mode of arrival: ambulatory Limitations: no limitations History of Present Illness: Patient is a 64-year-old female who presents to the emergency department complaining of left back and flank pain beginning yesterday. It has been steadily worsening today. 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 Denies any blood in her urine or dysuria, no history of stones or kidney infection. No fevers or nausea/vomiting. Has not taken anything for her symptoms. At this time vitals are stable, she notes that the pain is worse with any movement, deep breathing, or coughing. MD elicited complaint: back pain and other (Left flank pain) Onset (ago): day(s) Timing: constant Severity: severe Associated symptoms: Deny abdominal pain, chills, dysuria, fever(s), nausea, urinary urgency or vomiting Related Data Home Medications ?Medication ?Instructions ?Recorded ?Confirmed cetirizine 5 mg-pseudoephedrine ER 5 tab PO DAILY 12/1904/06/25 120 mg tablet,extended release,12hr estradiol 1 mg tablet 1 mg PO DAILY 01/08/2404/06 omeprazole 20 mg capsule,delayed 4 mg PO DAILY 4 04/06/25 release Previous Rx's ?Medication ?Instructions ?Recorded ondansetron 4 mg disintegrating 4 mg PO TID PRN nausea and 03/22/25 tablet vomiting 3 days #10 tabs ketorolac 10 mg tablet 10 mg PO Q8H PRN pain 5 days #15 04/20/25 tabs prednisone 20 mg tablet 40 mg (2 x 20 mg) PO ONCE 5 days 04/20/25 #10 tabs Allergies Allergy/AdvReac Type Severity Reaction Status Date / Time oxycodone Allergy ADR-Itching Verified 04/20/25 19:31 Review of Systems 2 General: Reports: 10 or more systems reviewed and unremarkable except in HPI and below Const: Denies: fever(s), chills, change in appetite, change in weight or diaphoresis ENMT: Denies: throat pain or hoarseness Card: Denies: chest pain, palpitations or lightheadedness Resp: Denies: dyspnea, productive cough or wheezing GI: Denies: abdominal pain, nausea, vomiting, diarrhea, constipation, bloating, change in stool character or hematochezia : Reports: flank pain (Left); Denies: difficulty voiding, dysuria, urinary frequency or urinary urgency Musc: Reports: back pain; Denies: neck pain Skin/Breast: Denies: rash or new lesions Neuro: Denies: headache(s) or dizziness PFSH ED 2 PFSH: Surgical History Hx laparoscopic cholecystectomy Social History Smoking and tobacco/nicotine status: former use of tobacco/nicotine Physical Exam 2 Const: COMMON NORMALS: no acute distress, patient oriented x3 and no limitations GENERAL APPEARANCE: cooperative and well developed O RIENTATION/CONSCIOUSNESS: Yes awake, Yes oriented to person, Yes oriented to place and Yes oriented to time OTHER: Nontoxic-appearing, comfortable at rest but any movement elicits pain HENMT: COMMON NORMALS: normocephalic, atraumatic and hearing grossly normal bilaterally HEAD & SCALP: normocephalic and atraumatic Eye: COMMON NORMALS: Equal, round and reactive pupils present, EOMs intact bilaterally and conjunctivae normal CONJUNCTIVA: Yes conjunctivae normal P UPIL: Yes Equal, round and reactive pupils present Neck/C-Spine: COMMON NORMALS: full ROM, supple and no JVD Resp: COMMON NORMALS: normal respiratory effort, No retractions, No use of accessory muscles and clear to auscultation bilaterally AUSCULTATION: clear to auscultation bilaterally Cardio: COMMON NORMALS: no JVD, regular rate, regular rhythm, No clicks present (Cardio), No murmurs present (Cardio) and No rub (Cardio) RATE: r egular rate RHYTHM: regular rhythm GI: COMMON NORMALS: Normal to inspection, nondistended, normoactive bowel sounds present, Soft to palpation and non-tender AUSCULTATION: Yes normoactive bowel sounds PALPATION: Yes Soft to palpation RECTAL EXAM: d eferred : COMMON NORMALS: Yes no CVA tenderness BLADDER/KIDNEY EXAM: Yes no CVA tenderness Back/Pelvis: COMMON NORMALS: no CVA tenderness OTHER: Tender to palpation to left posterolateral thoracic back Extremity: COMMON NORMALS: normal to inspection, full ROM and capillary refill normal Neuro: COMMON NORMALS: patient oriented x3, moves all extremities, no focal motor deficits and no sensory deficits noted SENSORIUM/ORIENTATION: Yes oriented to person, Yes oriented to place and Yes oriented to time Skin: COMMON NORMALS: no rashes or lesions noted GENERAL SKIN EXAM: no rashes or lesions noted Course 2 Vital Signs: Vital signs: Vital Signs Temperature 98.8 F 04/20/25 19:22 Pulse Rate 95 04/20/25 19:22 Respiratory Rate 18 04/20/25 19:22 Blood Pressure 117/70 04/20/25 19:22 Pulse Oximetry 99 04/20/25 19:22 Oxygen Delivery Me thod Room Air 04/20/25 19:22 MDM - Back Pain/Injury Medical Decision Making Patient presented with worsening left flank and back pain. 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 Tender to palpation to left posterolateral back region, she had no associated urinary symptoms of concern. Her urine was clean of any infection or blood to indicate any possible stone uropathy. CBC CMP are both unremarkable as well. Kidney function is normal and no leukocytosis to indicate any infectious etiology at this time. CT abdomen pelvis obtained to rule out any obstructive uropathy this is negative, there was comment of left lower lobe bronchial wall thickening as patient is not having any coughing, shortness of breath, and any physical exam was negative for any adventitious lung sounds so I do not suspect this is causation or related to her symptoms. Being that it is so easily exacerbated by deep breathing, movement, and reproducible to palpation I suspect this is musculoskeletal and likely costochondritis due to the anatomical location. For this we will treat with steroids and NSAIDs at home, have her modify her activity hold a few days off of work to allow for proper rest and recovery, and monitor her condition closely at home for any acute worsening and to return if she does develop any shortness of breath or anterior chest pain or worsening condition at all. Patient is agreeable to this plan at this time, no further workup necessary, she knows to return if worse. Labs 04/20/25 21:24 04/20/25 21:24 Radiology Impressions Abdomen/Pelvis CT 04/20/25 21:19 IMPRESSION: 1. Left lower lobe bronchial wall thickening, mucoid impaction and associated bronchovascular consolidation/ground-glass opacity. Findings are suggestive of distal small airways disease, consider chronic aspiration. 2. Trace left pleural effusion. 3. No findings of obstructive uropathy. Laboratory Results WBC 8.11 10^3/uL (3.29-11.43) 04/20/25 21:24 RBC 3.96 10^6/uL (3.85-5.65) 04/20/25 21:24 Hgb 12.10 g/dL (11.27-16.99) 04/20/25 21:24 Hct 36.9 % (36-47) 04/20/25 21:24 MCV 93.2 fl (85-98) 04/20/25 21:24 MCH 30.6 pg (27-33) 04/20/25 21:24 MCHC 32.8 g/dL (30-55) 04/20/25 21: RDW 13.3 % (12.1-15.1) 04/20/25 21:24 Plt Count 175 10^3/cmm (157-399) 04/20/25 21: MPV 10.0 fL (7.4-10.4) 04/20/25 21:24 Neut % (Auto) 66.7 % 04/20/25 21:24 Lymph % (Auto) 25.3 % 04/20/25 21:24 [place] % (Auto) 6.7 % 04/20/25 21:24 Eos % (Auto) 0.9 % 04/20/25:24 Baso % (Auto) 0.2 % 04/20/25 21:24 Neut # (Auto) 5.41 10^3/uL (1.8-7.7) 04/20/25:24 Lymph # (Auto) 2.1 10^3/uL (0.8-4.8) 04/20/25 21:24 [place] # (Auto) 0.5 10^3/uL (0.2-0.9) 04/20/25 21:24 Eos # (Auto) 0.1 10^3/uL (0.0-0.8) 04/20/25 21:24 Baso # (Auto) 0.0 10^3/uL (0.0-0.1) 04/20/25 21:24 Nucleated RBC % (auto) 0 % 04/20/25 21:24 Nucleated RBCs # 0.0 /100WBC 04/20/25 21:24 Sodium 138 mmol/L (136-145) 04/20/25 21:24 Potassium 3.7 mmol/L (3.5-5.1) 04/20/25 21:24 Chloride 100 mmol/L (98-107) 04/20/25 21:24 Carbon Dioxide 28 mmol/L (22-29) 04/20/25 21:24 Anion Gap 13.7 (5-19) 04/20/25 21:24 BUN 6 mg/dL (8-23) L 04/20/25 21:24 Creatinine 0.5 mg/dL (0.5-0.9) 04/20/25 21:24 GFR Calculation 125.0 mL/min (90-130) 04/20/25 21:24 Glucose 108 mg/dL (65-115) 04/20/25 21:24 Calculated Osmolality 284 mOsm/kg (285-295) L 04/20/25 21:24 Calcium 9.3 mg/dL (8.5-10.5) 04/20/25 21:24 Total Bilirubin 0.7 mg/dL (0.15-1.2) 04/20/25 21:24 AST 32 U/L (0-32) 04/20/25 21:24 ALT 22 U/L (0-33) 04/20/25 21:24 Alkaline Phosphatase 129 U/L (35-105) H 04/20/25 21:24 Total Protein 7.8 g/dL (6.6-8.7) 04/20/25 21:24 Albumin 4.1 g/dL (3.5-5.2) 04/20/25 21:24 Globulin 3.7 g/dL (1.3-4.6) 04/20/25 21:24 Lipase 18 U/L (13-60) 04/20/25 21:24 Urine Color [place] (Yellow) A 04/20/25 21:55 Urine Appearance Clear (CLEAR) 04/20/25 21:55 Urine pH 7.0 (5-7) 04/20/25 21:55 Ur Specific [place] 1.010 (1.005-1.030) 04/20/25 21:55 Urine Protein Negative (Negative) 04/20/25 21:55 Urine Glucose (UA) Negative (Normal) 04/20/25 21:55 Urine Ketones Negative (Negative) 04/20/25 21:55 Urine Blood 1+ (Negative) A 04/20/25 21:55 Urine Nitrate Negative (Negative) 04/20/25 21: Urine Bilirubin Negative (Negative) 04/20/25 21:55 Urine Urobilinogen 1.0 mg/dL (Negative) 04/20/25 21:55 Ur Leukocyte Esterase Negative (Negative) 04/20/25 21:55 Urine RBC 6-10 /hpf (0-2) 04/20/25 21:55 Urine WBC 6-10 /hpf (0-5) 04/20/25 21:55 Ur Squamous Epith Cells 0-5 /hpf (0-5) 04/20/25 21:55 Amorphous Sediment Not Reportable 04/20/25 21: Urine Bacteria Trace /hpf (NONE) 04/20/25 21:55 Hyaline Casts 0-4 /lpf H 04/20/25 21:55 All radiology interpretation(s) finalized by discharge Discharge Plan Discharge Patient Disposition: Home Clinical Impression: Acute costochondritis Condition: Stable Prescriptions: New prednisone 20 mg tablet 40 mg PO ONCE 5 Days Qty: 10 0RF ketorolac 10 mg tablet 10 mg PO Q8H PRN (Reason: pain) 5 Days Qty: 15 0RF No Action cetirizine-pseudoephedrine 5-120 mg tablet extended release 12 hr 5 tab PO DAILY estradiol 1 mg tablet 1 mg PO DAILY omeprazole 20 mg capsule,delayed release(DR/EC) 4 mg PO DAILY ondansetron 4 mg tablet,disintegrating 4 mg PO TID PRN (Reason: nausea and vomiting) 3 Days Qty: 10 0RF Discharge Orders: Discharge ED (Routine); Ordered 04/20/25 Ordered By: Fab Pulido Referrals: Niall Hameed MD [Primary Care Provider, [facility]] Patient Instructions: Patient Portal & Maryellen Instructions Activity Restrictions/Additional Instructions: Costochondritis Discharge Instructions Your Diagnosis You have been diagnosed with costochondritis, which is inflammation of the cartilage that connects your ribs to your breastbone. This condition causes chest pain and tenderness but is not dangerous to your heart or lungs. Your symptoms are likely related to your work as a bus mechanic, where the vibration from the bus and your position at the steering wheel may be straining the muscles and cartilage in your chest wall. Your Medications You have been prescribed two medications to help reduce inflammation and pain: 1. Prednisone 40 mg: Take one tablet by mouth once daily for 5 days. This is a steroid that reduces inflammation. Take this medication with food to protect your stomach. Do not stop this medication early, and do not continue it beyond 5 days unless instructed by your doctor. 2. Ketorolac (Toradol) 10 mg: Take one tablet by mouth three times daily for 5 days. This is a strong anti-inflammatory pain medication. Take this with food to reduce stomach upset. Do not take this medication for more than 5 days total, as longer use can increase the risk of side effects. Important Medication Warnings - Do not take ketorolac if you are also taking blood thinners (such as warfarin or heparin) without discussing with your doctor, as this combination increases bleeding risk. - Stop ketorolac and call your doctor if you develop: severe stomach pain, black or bloody stools, vomiting blood, yellowing of your skin or eyes, or any rash. - These medications work together but should only be used for the short 5-day course prescribed. What You Should Do at Home - Avoid activities that worsen your pain, especially repetitive movements or positions that strain your chest wall. - Consider modifying your work position or taking breaks to reduce strain from driving. - Apply ice or heat to the painful area for 15-20 minutes at a time, whichever feels better. - Gentle stretching may help, but avoid movements that reproduce your pain. When to Seek Medical Care Call 911 or go to the emergency room immediately if you develop: - Difficulty breathing or shortness of breath - Chest pain that feels different from your current pain or gets significantly worse - Dizziness, fainting, or feeling like your heart is racing - Swelling of your face or throat, or difficulty swallowing Call your doctor if you experience: - Pain that does not improve after completing your medications - Fever or chills - New or worsening symptoms - Signs of medication side effects (stomach pain, black stools, rash, yellowing of skin) Follow-Up Contact your primary care doctor if your symptoms have not improved within 1-2 weeks after completing your medication course. Most cases of costochondritis improve with treatment and activity modification, but some patients may need additional evaluation or treatment if symptoms persist. Remember: While costochondritis can be painful, it is a benign condition that typically improves with rest and anti-inflammatory treatment. The connell is to avoid activities that aggravate your symptoms while the inflammation heals. Stand Alone Forms: Work/School Release Print Language: Romanian Coding Level of Care Code ED Agricultural Specialist for Thao Cox
[2025-04-20 21:51] LABS: Hematocrit 36.9 % (36-47); Hemoglobin 12.10 g/dL (11.27-16.99); Mean Corpuscular HGB Conc 32.8 g/dL (30-55); Mean Corpuscular Hemoglobin 30.6 pg (27-33); Mean Corpuscular Volume 93.2 fl (85-98); Nucleated Red Blood Cells % 0 %; Platelet Count 175 10^3/cmm (157-399); Red Blood Count 3.96 10^6/uL (3.85-5.65); White Blood Count 8.11 10^3/uL (3.29-11.43)
[2025-04-20 21:53] LABS: Alanine Aminotransferase 22 U/L (0-33); Albumin Level 4.1 g/dL (3.5-5.2); Alkaline Phosphatase 129 U/L (35-105); Anion Gap 13.7 (5-19); Aspartate Amino Transferase 32 U/L (0-32); Blood Urea Nitrogen 6 mg/dL (8-23); Calcium 9.3 mg/dL (8.5-10.5); Carbon Dioxide 28 mmol/L (22-29); Chloride 100 mmol/L (98-107); Globulin 3.7 g/dL (1.3-4.6); Glucose 108 mg/dL (65-115); Lipase 18 U/L (13-60); Osmolality Calculated 284 mOsm/kg (285-295); Potassium 3.7 mmol/L (3.5-5.1); Sodium 138 mmol/L (136-145); Total Protein 7.8 g/dL (6.6-8.7)
[2025-04-20 22:00] VITALS: BP 115/62; PULSE 94; O2SAT 96
[2025-04-20 22:18] LABS: Glucose Urine UA Negative (Normal); Nitrate Urine Negative (Negative); Specific Gravity, Urine 1.010 (1.005-1.030)
[2025-04-20 22:22] LABS: Add Urine Microscopic? YES
[2025-04-20] MEDS: HYDROcodone-acetaminophen 7.5-325 mg Tablet 2 TAB PO (22:57)
[2025-04-20 23:10] VITALS: BP 104/69; PULSE 96; O2SAT 99
== END 2025-04-20 23:10 | disposition home or self-care (01) ==
PROVIDERS: Emergency Provider Physician Assistant; PCP Family Medicine
DX: M94.0 Chondrocostal junction syndrome [Tietze] (principal); Z87.891 Personal history of nicotine dependence
CPT/HCPCS: 36415; 74176; 80053; 81001; 83690; 85025; 99284; J9999